=== PATIENT | female | born 1965 | race Caucasian/White ===

== ENCOUNTER 2016-07-10 14:06 | Emergency (ER) | payer MEDICARE, OTHER ==
[~2016-07-10 14:06] MED LIST: ALPR0.5T PO; ASPI81TA2 PO; CALC600T4 PO; CHOL100013 PO; CLIN300C86 PO; CLON0.5T3 PO; CYCL10TA2 PO; DOCU-27 PO; DULO30CA2 PO; FLUC150T PO; KETO10TA PO; LACT1CAP8 PO; LEVO88TA2 PO; LORA10CA PO; LOSA1TAB17 PO; LUBI24CA5 PO; OXYC-323 PO; PREG50CA PO; PREN1TAB54 PO; TRAZ50TA15 PO; VERA120T5 PO; bariatric vitamin PO; mega red
[2016-07-10 14:10] VITALS: BP 120/89
[2016-07-10] MEDS ORDERED: PROCHLORPERAZINE 10 MG/2 ML VIAL. IV ONE (14:30)
--- NOTE | 2016-07-10 14:35 | ED.ADGEN ---
Past History Past Medical History: Heart Disease, Hypertension, Hypothyroid, Migraines Past Surgical History: Gastric Bypass, Other Smoking: Non-smoker Alcohol Use: None Drug Use: None Adult General HPI HPI Patient is a 51-year-old female presents emergency department complaining of her typical migraine headache. She states that her head hurts "all over" she also rates tells me that she has had associated nausea and vomiting. Her home medications of been no relief. She tells me that she saw her neurologist lasted beginning of next month and that she has another appointment at the end of this month. She notes that morphine usually works on her headaches but she acknowledges that we have not given her morphine for her headaches and over 1 year. Review of Systems Review of Systems Constitutional: Denies fever or chills [] Eyes: Denies change in visual acuity, redness, or eye pain [] HENT: Denies nasal congestion or sore throat [] Respiratory: Denies cough or shortness of breath [] Cardiovascular: No additional information not addressed in HPI [] GI: Denies abdominal pain, nausea, vomiting, bloody stools or diarrhea [] : Denies dysuria or hematuria [] Musculoskeletal: Denies back pain or joint pain [] Integument: Denies rash or skin lesions [] Neurologic: Denies headache, focal weakness or sensory changes [] Endocrine: Denies polyuria or polydipsia [] Current Medications Current Medications Current Medications Medications (Trade) Dose Ordered Sig/Judy Start Time Stop Time Status Last Admin Dose Admin Diphenhydramine HCl 25 mg 25 mg 1X ONCE 07/10/16 15:00 07/10/16 15:01 DC 07/10/16 14:47 25 MG Prochlorperazine Edisylate (Compazine) 10 mg 1X ONCE 07/10/16 14:30 07/10/16 14:48 DC 07/10/16 14:47 10 MG Sodium Chloride (Iv Sodium Chloride 0.9% 1,000ml) 1,000 ml @ 1,000 mls/hr 1X ONCE 07/10/16 15:00 07/10/16 15:59 07/10/16 14:47 1,000 MLS/HR Allergies Allergies Allergies Coded Allergies Type Severity Reaction Last Updated Verified Sulfa (Sulfonamide Antibiotics) Allergy Intermediate 05/22/14 Yes codeine Allergy Unknown 2/19/15 Yes ibuprofen Allergy Unknown 03/13/16 Yes promethazine Allergy Unknown 05/22/14 Yes Physical Exam Physical Exam Constitutional: Well developed, well nourished, no acute distress, non-toxic appearance. [] HENT: Normocephalic, atraumatic, bilateral external ears normal, oropharynx moist, no oral exudates, nose normal. [] Eyes: PERRLA, EOMI, conjunctiva normal, no discharge. [] Neck: Normal range of motion, no tenderness, supple, no stridor. [] Cardiovascular:Heart rate regular rhythm, no murmur [] Lungs & Thorax: Bilateral breath sounds clear to auscultation [] Abdomen: Bowel sounds normal, soft, no tenderness, no masses, no pulsatile masses. [] Skin: Warm, dry, no erythema, no rash. [] Back: No tenderness, no CVA tenderness. [] Extremities: No tenderness, no cyanosis, no clubbing, ROM intact, no edema. [] Neurologic: Alert and oriented X 3, normal motor function, normal sensory function, no focal deficits noted. [] Psychologic: Affect normal, judgement normal, mood normal. [] Current Patient Data Vital Signs Vital Signs Date Time Temp Pulse Resp B/P Pulse Ox O2 Delivery O2 Flow Rate FiO2 07/10/16 14:10 98.1 100 18 98 Room Air EKG EKG [] Radiology/Procedures Radiology/Procedures [] Course & Med Decision Making Course & Med Decision Making Pertinent Labs and Imaging studies reviewed. (See chart for details) IVF's, compazine, and benadryl. Given supportive care and follow-up instructions. [] Final Impression Final Impression Migraine Headache[] Problems: Dragon Disclaimer Dragon Disclaimer This electronic medical record was generated, in whole or in part, using a voice recognition dictation system. ADIA HU MD Jul 10, 2016 14:35
[2016-07-10] MEDS ORDERED: IV NORMAL SALINE 1,000ML 1,000 ML IV ONE (15:00)
[2016-07-10] MEDS ORDERED: DIPHENHYDRAMINE 50 MG/ML VIAL IVP ONE (15:00)
== END 2016-07-10 15:23 | disposition home or self-care (01) ==
LOC: ER 14:06
DX: G43.909 Migraine, unspecified, not intractable, without status migrainosus (principal); R11.2 Nausea with vomiting, unspecified; E03.9 Hypothyroidism, unspecified; I11.9 Hypertensive heart disease without heart failure; Z88.2 Allergy status to sulfonamides; Z88.5 Allergy status to narcotic agent; Z88.6 Allergy status to analgesic agent; Z88.8 Allergy status to other drugs, medicaments and biological substances
CPT/HCPCS: 96361; 96374; 96375; 99284; J0780; J1200; J7030

== ENCOUNTER 2017-01-11 14:50 | Emergency (ER) | payer MEDICARE, OTHER ==
[~2017-01-11] VITALS: Ht 157.5 cm; Wt 84.5 kg
[~2017-01-11 14:50] MED LIST changes: +ASPI-630 PO; -ASPI81TA2 PO; +CLIN300C8 PO; -CLIN300C86 PO; +CYCL-331 PO; -CYCL10TA2 PO; +DOCU-109 PO; -DOCU-27 PO; -LOSA1TAB17 PO; +LOSA1TAB22 PO; -LUBI24CA5 PO; +LUBI24CA7 PO
--- NOTE | 2017-01-11 15:10 | PHYS DOC ---
Past History Past Medical History: Heart Disease, Hypertension, Hypothyroid, Migraines Past Surgical History: Gastric Bypass, Other Smoking: Non-smoker Alcohol Use: None Drug Use: None Adult General Chief Complaint Chief Complaint: HEADACHE HPI HPI Patient is a 51 year old female who presents with her typical migraine headache. She states it started earlier today and she took her typical migraine headache medicine at home without any improvement. She states is throbbing pain it's in the frontal posterior aspect of her head she feels nauseated and sound and light makes it worse. She states this is her typical headache. She denies any fevers she feels nauseated but she states she's been drinking fine. She denies any neck pain. She states normally his morphine and Toradol that makes her feel better. She presents to ER with her . Review of Systems Review of Systems Constitutional: Denies fever or chills Eyes: Denies change in visual acuity, redness, or eye pain HENT: Denies nasal congestion or sore throat Respiratory: Denies cough or shortness of breath Cardiovascular: No additional information not addressed in HPI GI: Denies abdominal pain, nausea, vomiting, bloody stools or diarrhea : Denies dysuria or hematuria Musculoskeletal: Denies back pain or joint pain Integument: Denies rash or skin lesions Neurologic: Denies focal weakness or sensory changes, positive for headache Endocrine: Denies polyuria or polydipsia Allergies Allergies Allergies Coded Allergies Type Severity Reaction Last Updated Verified Sulfa (Sulfonamide Antibiotics) Allergy Intermediate 05/22/14 Yes codeine Allergy Unknown 05/22/14 Yes ibuprofen Allergy Unknown 03/13/16 Yes promethazine Allergy Unknown 05/22/14 Yes Physical Exam Physical Exam Constitutional: Well developed, well nourished, no acute distress, non-toxic appearance. HENT: Normocephalic, atraumatic, bilateral external ears normal, oropharynx moist, no oral exudates, nose normal. Eyes: PERRLA, EOMI, conjunctiva normal, no discharge. Neck: Normal range of motion, no tenderness, supple, no stridor. Cardiovascular:Heart rate regular rhythm, no murmur Lungs & Thorax: Bilateral breath sounds clear to auscultation Abdomen: Bowel sounds normal, soft, no tenderness, no masses, no pulsatile masses. Skin: Warm, dry, no erythema, no rash. Back: No tenderness, no CVA tenderness. Extremities: No tenderness, no cyanosis, no clubbing, ROM intact, no edema. Neurologic: Alert and oriented X 3, normal motor function, normal sensory function, no focal deficits noted. Psychologic: Affect normal, judgement normal, mood normal. EKG EKG [] Radiology/Procedures Radiology/Procedures [] Impressions: Migraine headache Course & Med Decision Making Course & Med Decision Making Pertinent Labs and Imaging studies reviewed. (See chart for details) Her symptoms have improved. She's being discharged home. Her is driving her home. Return precautions given. She is agreeable to the plan, and being discharged in stable condition this time. Dragon Disclaimer Dragon Disclaimer This chart was dictated in whole or in part using Voice Recognition software in a busy, high-work load, and often noisy Emergency Department environment. It may contain unintended and wholly unrecognized errors or omissions. Departure Departure: Impression: Primary Impression: Migraine headache Disposition: HOME, SELF-CARE Condition: STABLE Referrals: BRANDY HU DO (PCP) Patient Instructions: Migraine Headache Additional Instructions: You were seen today for your migraine headache. It got better with IV fluids, Benadryl Toradol and Phenergan. Your being discharged home. Please rest and be sure to push fluids for the remainder of the evening. You can continue taking your [id number] headache medicines. Return ER if your headache gets worse , you develop fevers, neck stiffness we have other concerns. Problem Qualifiers Primary Impression: Migraine headache Migraine type: unspecified Status migrainosus presence: without status migrainosus Intractability: not intractable Qualified Codes: G43.909 - Migraine, unspecified, not intractable, without status migrainosus MARYSOL FRANCISCO MD Jan 11, 2017 15:10
[2017-01-11] MEDS ORDERED: PROMETHAZINE 12.5 MG in IV NORMAL SALINE 50ML 50 ML IV PRN (15:30)
[2017-01-11] MEDS ORDERED: KETOROLAC 30 MG/ML VIAL. IV ONE (15:45)
[2017-01-11] MEDS ORDERED: diphenhydrAMINE 50 MG/ML VIAL IVP ONE (15:45)
[2017-01-11] MEDS ORDERED: PROCHLORPERAZINE 10 MG/2 ML VIAL. IV ONE (16:15)
[2017-01-11 17:20] VITALS: BP 132/102
== END 2017-01-11 17:20 | disposition home or self-care (01) ==
LOC: ER 14:50
DX: G43.909 Migraine, unspecified, not intractable, without status migrainosus (principal); I11.9 Hypertensive heart disease without heart failure; E03.9 Hypothyroidism, unspecified; Z98.84 Bariatric surgery status; Z88.2 Allergy status to sulfonamides; Z88.5 Allergy status to narcotic agent; Z88.4 Allergy status to anesthetic agent; Z88.6 Allergy status to analgesic agent
CPT/HCPCS: 96374; 96375; 99284; J0780; J1200; J1885

== ENCOUNTER 2017-08-10 17:59 | Emergency (ER) | payer MEDICARE, OTHER ==
[~2017-08-10] VITALS: Ht 157.5 cm; Wt 88.0 kg
[2017-08-10] MEDS ORDERED: DEXAMETHASONE SOD PHOS 10 MG/ML VIAL IV ONE (19:15)
[2017-08-10] MEDS ORDERED: KETOROLAC 30 MG/ML VIAL. IV ONE (19:15)
[2017-08-10] MEDS ORDERED: METOCLOPRAMIDE HCL 10 MG/2 ML VIAL. IV ONE (19:15)
[2017-08-10] MEDS ORDERED: IV NORMAL SALINE 1,000ML 1,000 ML IV SCH (19:15)
[2017-08-10] MEDS ORDERED: diphenhydrAMINE 50 MG/ML VIAL IVP ONE (19:15)
[2017-08-10 20:08] VITALS: BP 137/89
--- NOTE | 2017-08-10 20:29 | PHYS DOC ---
Past History Past Medical History: Heart Disease, Hypertension, Hypothyroid, Migraines Past Surgical History: Gastric Bypass Smoking: Non-smoker Alcohol Use: None Drug Use: None Adult General Chief Complaint Chief Complaint: HEADACHE HPI HPI 52-year-old female with a history of migraine headaches now presents to the emergency department after gradual onset of headache typical for her. No fevers chills sweats or shaking chills. No stiff neck. No visual or speech changes. No difficulty with strength sensation coordination or gait Review of Systems Review of Systems Constitutional: Denies fever or chills [] Eyes: Denies change in visual acuity, redness, or eye pain [] HENT: Denies nasal congestion or sore throat [] Respiratory: Denies cough or shortness of breath [] Cardiovascular: No additional information not addressed in HPI [] GI: Denies abdominal pain, nausea, vomiting, bloody stools or diarrhea [] : Denies dysuria or hematuria [] Musculoskeletal: Denies back pain or joint pain [] Integument: Denies rash or skin lesions [] Neurologic: Denies headache, focal weakness or sensory changes [] Endocrine: Denies polyuria or polydipsia [] All other systems were reviewed and found to be within normal limits, except as documented in this note. Current Medications Current Medications Current Medications Medications (Trade) Dose Ordered Sig/Judy Start Time Stop Time Status Last Admin Dose Admin Dexamethasone Sodium Phosphate (Decadron) 10 mg 1X ONCE 08/10/17 19:15 08/10/17 19:17 DC 08/10/17 19:24 10 MG Diphenhydramine HCl (Benadryl) 25 mg 1X ONCE 08/10/17 19:15 08/10/17 19:17 DC 08/10/17 19:27 25 MG Ketorolac Tromethamine (Toradol) 30 mg 1X ONCE 08/10/17 19:15 08/10/17 19:18 DC 08/10/17 19:28 30 MG Metoclopramide HCl (Reglan Vial) 10 mg 1X ONCE 08/10/17 19:15 08/10/17 19:18 DC 08/10/17 19:25 10 MG Sodium Chloride 1,000 ml @ 1,000 mls/hr Q1H 08/10/17 19:15 08/10/17 19:23 1,000 MLS/HR Allergies Allergies Allergies Coded Allergies Type Severity Reaction Last Updated Verified Sulfa (Sulfonamide Antibiotics) Allergy Intermediate 05/22/14 Yes codeine Allergy Unknown 05/22/14 Yes ibuprofen Allergy Unknown 03/13/16 Yes promethazine Allergy Unknown 05/22/14 Yes Physical Exam Physical Exam Mild photophobia but well-appearing patient in no acute distress, supple neck no meningismus. Constitutional: Well developed, well nourished, no acute distress, non-toxic appearance. [] HENT: Normocephalic, atraumatic, bilateral external ears normal, oropharynx moist, no oral exudates, nose normal. [] Eyes: PERRLA, EOMI, conjunctiva normal, no discharge. [] Neck: Normal range of motion, no tenderness, supple, no stridor. [] Cardiovascular:Heart rate regular rhythm, no murmur [] Lungs & Thorax: Bilateral breath sounds clear to auscultation [] Abdomen: Bowel sounds normal, soft, no tenderness, no masses, no pulsatile masses. [] Skin: Warm, dry, no erythema, no rash. [] Back: No tenderness, no CVA tenderness. [] Extremities: No tenderness, no cyanosis, no clubbing, ROM intact, no edema. [] Neurologic: Alert and oriented X 3, normal motor function, normal sensory function, no focal deficits noted. [] Psychologic: Affect normal, judgement normal, mood normal. [] Current Patient Data Vital Signs Vital Signs Date Time Temp Pulse Resp B/P (MAP) Pulse Ox O2 Delivery O2 Flow Rate FiO2 08/10/17 18:30 98.1 89 18 100 Room Air EKG EKG [] Radiology/Procedures Radiology/Procedures [] Course & Med Decision Making Course & Med Decision Making Pertinent Labs and Imaging studies reviewed. (See chart for details) Signs and symptoms consistent with migraine headache typical for this patient. Improved after treatment. Patient feels well and wants to go home. No further workup or treatment indicated patient agrees with outpatient follow-up and strict return precautions given [] Dragon Disclaimer Dragon Disclaimer This electronic medical record was generated, in whole or in part, using a voice recognition dictation system. Departure Departure: Impression: Primary Impression: Migraine headache Disposition: HOME, SELF-CARE Condition: IMPROVED Referrals: BRANDY HU DO (PCP) Patient Instructions: Migraine Headache Additional Instructions: It appears that you've been suffering from a migraine headache with which you are familiar. You have improved with hydration and treatment in the emergency department. Take Tylenol every 4 hours as needed for discomfort and consider Benadryl 25-50 mg every 4-6 hours as needed if he tends to be helpful in the setting of your headaches. Follow-up with your doctor tomorrow and return immediately for new severe worsening symptoms. FLAKITA BECKER MD August 10, 2017 20:29
== END 2017-08-10 20:41 | disposition home or self-care (01) ==
LOC: ER 17:59
DX: G43.909 Migraine, unspecified, not intractable, without status migrainosus (principal); I11.9 Hypertensive heart disease without heart failure; E03.9 Hypothyroidism, unspecified; Z98.84 Bariatric surgery status; Z88.2 Allergy status to sulfonamides; Z88.6 Allergy status to analgesic agent; Z88.8 Allergy status to other drugs, medicaments and biological substances
CPT/HCPCS: 96374; 96375; 99284; J1100; J1200; J1885; J2765; J7030

== ENCOUNTER 2017-10-08 13:48 | Emergency (ER) | payer MEDICARE, OTHER ==
[~2017-10-08] VITALS: Ht 61 cm; Wt 86.2 kg
[~2017-10-08 13:48] MED LIST changes: +CLON0.5T11 PO; -CLON0.5T3 PO; +TRAZ-85 PO; -TRAZ50TA15 PO
[2017-10-08 13:59] VITALS: BP 139/100
[2017-10-08] MEDS ORDERED: diphenhydrAMINE 50 MG/ML VIAL IVP ONE (14:15)
[2017-10-08] MEDS ORDERED: IV NORMAL SALINE 1,000ML 1,000 ML IV ONE (14:15)
--- NOTE | 2017-10-08 14:28 | ED.ADGEN ---
Past History Past Medical History: Anxiety, Depression, Hypertension, Hypothyroid, Migraines Past Surgical History: Appendectomy, Cholecystectomy, , Hysterectomy Smoking: Non-smoker Alcohol Use: None Drug Use: None Adult General HPI HPI Patient is a 52 year old female who presents with migraine. Patient has been having migraine symptoms since yesterday. She complains of a frontotemporal headache. She has some nausea but no vomiting. She has photosensitivity. The patient has a prior history of migraines. She does take Zomig at home but this medication did not relieve her symptoms. She also took some Flexeril and Benadryl last night by mouth but these also did not help. This migraine feels exactly similar to her prior migraine syndrome. She has not had a fever or chills. No neck stiffness. No vision changes. No rashes. Review of Systems Review of Systems Constitutional: Denies fever or chills Eyes: Denies change in visual acuity HENT: Denies nasal congestion Respiratory: Denies cough or shortness of breath Cardiovascular: No additional information GI: no abdominal pain : Denies dysuria or hematuria Musculoskeletal: Denies back pain Integument: Denies rash or skin lesions Neurologic: Denies headache Endocrine: Denies polyuria All other systems were reviewed and found to be within normal limits, except as documented in this note. Current Medications Current Medications Current Medications Medications (Trade) Dose Ordered Sig/Judy Start Time Stop Time Status Last Admin Dose Admin Diphenhydramine HCl (Benadryl) 25 mg 1X ONCE 10/08/17 14:15 10/08/17 14:16 DC 10/08/17 14:39 25 MG Ketorolac Tromethamine (Toradol) 30 mg 1X ONCE 10/08/17 14:30 10/08/17 14:31 DC 10/08/17 14:39 30 MG Prochlorperazine Edisylate (Compazine) 10 mg 1X ONCE 10/08/17 14:30 10/08/17 14:31 DC 10/08/17 14:39 10 MG Sodium Chloride 1,000 ml @ 1,000 mls/hr 1X ONCE 10/08/17 14:15 10/08/17 15:14 DC 10/08/17 14:38 1,000 MLS/HR Allergies Allergies Allergies Coded Allergies Type Severity Reaction Last Updated Verified Sulfa (Sulfonamide Antibiotics) Allergy Intermediate 05/22/14 Yes codeine Allergy Unknown 05/22/14 Yes ibuprofen Allergy Unknown 03/13/16 Yes promethazine Allergy Unknown 05/22/14 Yes Physical Exam Physical Exam Constitutional: Well developed, well nourished, no acute distress HENT: Normocephalic, atraumatic, bilateral external ears normal Eyes: PERRLA, EOMI, conjunctiva normal, no discharge Neck: Normal range of motion, no tenderness Cardiovascular:Heart rate regular rhythm, no murmur Lungs & Thorax: Bilateral breath sounds clear to auscultation Abdomen: Bowel sounds normal, soft Skin: Warm, dry, no rash Back: No tenderness, no CVA tenderness Extremities: No edema Neurologic: Alert and oriented X 3, normal motor function, cranial nerves II through XII are intact bilaterally. Psychologic: Affect normal Current Patient Data Vital Signs Vital Signs Date Time Temp Pulse Resp B/P (MAP) Pulse Ox O2 Delivery O2 Flow Rate FiO2 10/08/17 13:59 94 18 100 Room Air EKG EKG [] Radiology/Procedures Radiology/Procedures [] Course & Med Decision Making Course & Med Decision Making Pertinent Labs and Imaging studies reviewed. (See chart for details) Patient is seen and examined. She is complaining of migraine headache that is very typical for her migraine syndrome. No new or acute symptoms. She has had some relief with Toradol the past. This visit, plan is to give IV fluids, Compazine, Benadryl, Toradol. 15:20: Patient currently feeling improved. She received 800 mL of normal saline. She was given IV medications described above. These did entirely relieve her migraine symptoms. She is requesting discharge home. She is accompanied by her who is driving today. Return precautions are discussed and she is advised to come back to the ER if her headache returns and her home medication did not relieve her symptoms or if she develops any new symptoms. Otherwise, she will follow up with her primary care doctor. Final Impression Final Impression Migraine headache Yosvany Disclaimer Yosvany Disclaimer This electronic medical record was generated, in whole or in part, using a voice recognition dictation system. VANESA ESPINOSA DO Oct 08, 2017 14:28
[2017-10-08] MEDS ORDERED: KETOROLAC 30 MG/ML VIAL. IV ONE (14:30)
[2017-10-08] MEDS ORDERED: PROCHLORPERAZINE 10 MG/2 ML VIAL. IV ONE (14:30)
== END 2017-10-08 15:43 | disposition home or self-care (01) ==
LOC: ER 13:48
DX: G43.909 Migraine, unspecified, not intractable, without status migrainosus (principal); F41.9 Anxiety disorder, unspecified; F32.9 Major depressive disorder, single episode, unspecified; I10 Essential (primary) hypertension; E03.9 Hypothyroidism, unspecified; Z88.2 Allergy status to sulfonamides; Z88.5 Allergy status to narcotic agent; Z88.8 Allergy status to other drugs, medicaments and biological substances; Z88.6 Allergy status to analgesic agent
CPT/HCPCS: 96374; 96375; 99284; J0780; J1200; J1885; J7030

== ENCOUNTER 2017-11-12 20:17 | Emergency (ER) | payer MEDICARE, OTHER ==
[~2017-11-12] VITALS: Ht 66 cm; Wt 88.0 kg
[2017-11-12 20:30] VITALS: BP 122/82
--- NOTE | 2017-11-12 20:30 | ED.ADGEN ---
Past History Past Medical History: Anxiety, Depression, Hypertension, Hypothyroid, Migraines Past Surgical History: Appendectomy, Cholecystectomy, , Hysterectomy Smoking: Non-smoker Alcohol Use: None Drug Use: None Adult General Chief Complaint Chief Complaint ".. I got stung by a wasp .. yesterday.. but I still got swelling.. I did take some benadryl..." HPI HPI Patient is a 52 year old female who presents with multiple stings to Lt. arm and hand. Patient has multiple stings on left arm and hand. There is a central sting miriam and surrounding erythema. Distal sensation and capillary refill equal to right arm. Patient reports she is up-to-date with vaccinations. Patient has had stings before from [place] or bees. Patient denies any history of immunosuppression. There is no striations or adenopathy. Must follows at [facility]. No recent travel or specific ill contacts. Review of Systems Review of Systems Constitutional: Denies fever or chills [] Eyes: Denies change in visual acuity, redness, or eye pain [] HENT: Denies nasal congestion or sore throat [] Respiratory: Denies cough or shortness of breath [] Cardiovascular: No additional information not addressed in HPI [] GI: Denies abdominal pain, nausea, vomiting, bloody stools or diarrhea [] : Denies dysuria or hematuria [] Musculoskeletal: Denies back pain or joint pain [] Integument: Denies rash or skin lesions []complains of multiple insect stings Neurologic: Denies headache, focal weakness or sensory changes [] Endocrine: Denies polyuria or polydipsia [] All other systems were reviewed and found to be within normal limits, except as documented in this note. Family History Family History Noncontributory Current Medications Current Medications Current Medications Medications (Trade) Dose Ordered Sig/Judy Start Time Stop Time Status Last Admin Dose Admin Famotidine (Pepcid Vial) 20 mg 1X ONCE 11/12/17 23:45 11/12/17 23:46 UNV Famotidine (Pepcid) 20 mg 1X ONCE 11/12/17 21:00 11/12/17 21:55 DC 11/12/17 21:09 20 MG Lactated Ringer's 1,000 ml @ 1,000 mls/hr Q1H 11/12/17 23:34 11/13/17 00:33 UNV Ondansetron HCl (Zofran) 8 mg 1X ONCE 11/12/17 23:45 11/12/17 23:46 UNV Prednisone (Prednisone) 50 mg 1X ONCE 11/12/17 21:00 11/12/17 21:55 DC 11/12/17 21:09 50 MG Allergies Allergies Allergies Coded Allergies Type Severity Reaction Last Updated Verified Sulfa (Sulfonamide Antibiotics) Allergy Intermediate 05/22/14 Yes codeine Allergy Unknown 05/22/14 Yes ibuprofen Allergy Unknown 03/13/16 Yes promethazine Allergy Unknown 05/22/14 Yes Physical Exam Physical Exam Constitutional: Well developed, well nourished, moderately acute distress, non- toxic appearance. [] HENT: Normocephalic, atraumatic, bilateral external ears normal, oropharynx moist, no oral exudates, nose normal. [] Eyes: PERRLA, EOMI, conjunctiva normal, no discharge. [] Neck: Normal range of motion, no tenderness, supple, no stridor. [] Cardiovascular:Heart rate regular rhythm, no murmur [] Lungs & Thorax: Bilateral breath sounds clear to auscultation [] Abdomen: Bowel sounds normal, soft, no tenderness, no masses, no pulsatile masses. [] Old surgery scars. Skin: Warm, dry, no erythema, no rash. [] Multiple insect stings left arm Back: No tenderness, no CVA tenderness. [] Extremities: No tenderness, no cyanosis, no clubbing, ROM intact, no edema. [] Except findings and left arm- of insect stings Neurologic: Alert and oriented X 3, normal motor function, normal sensory function, no focal deficits noted. [] Psychologic: Affect anxious, judgement normal, mood normal. [] Current Patient Data Vital Signs Vital Signs Date Time Temp Pulse Resp B/P (MAP) Pulse Ox O2 Delivery O2 Flow Rate FiO2 11/12/17 20:30 98.2 103 18 96 Room Air EKG EKG [] Radiology/Procedures Radiology/Procedures [] Course & Med Decision Making Course & Med Decision Making Pertinent Labs and Imaging studies reviewed. (See chart for details). Patient continue Benadryl 25-50 mg 4 times a day. Compresses. Massage areas with Polysporin 4 times a day. Take Keflex if she develops signs of infection. Zantac 150 twice day x 10 days. Take prednisone 50 mg day for 5 days. Follow-up primary care. Return if any concerns. [] Final Impression Final Impression 1. Insect Stings[] Dragon Disclaimer Dragon Disclaimer This electronic medical record was generated, in whole or in part, using a voice recognition dictation system. LUCÍA VELASQUEZ MD Nov 12, 2017 20:30
[2017-11-12] MEDS ORDERED: RANI150T21 PO (20:59)
[2017-11-12] MEDS ORDERED: PRED50TA PO (20:59)
[2017-11-12] MEDS ORDERED: CEPH-264 PO (20:59)
[2017-11-12] MEDS ORDERED: BACI28.34 TP (20:59)
[2017-11-12] MEDS ORDERED: predniSONE 10 MG TABLET PO ONE (21:00)
[2017-11-12] MEDS ORDERED: FAMOTIDINE 20 MG TABLET PO ONE (21:00)
[2017-11-12] MEDS ORDERED: IV RINGERS SOLUTION,LACTATED 1,000 ML IV SCH (23:34)
[2017-11-12] MEDS ORDERED: ONDANSETRON PF 4 MG/2 ML VIAL. IV ONE (23:45)
[2017-11-12] MEDS ORDERED: FAMOTIDINE 20 MG/2 ML VIAL IVP ONE (23:45)
== END 2017-11-12 21:12 | disposition home or self-care (01) ==
LOC: ER 20:17
DX: T63.461A Toxic effect of venom of wasps, accidental (unintentional), initial encounter (principal); F41.9 Anxiety disorder, unspecified; I10 Essential (primary) hypertension; E03.9 Hypothyroidism, unspecified; G43.909 Migraine, unspecified, not intractable, without status migrainosus; Z88.2 Allergy status to sulfonamides; Z88.5 Allergy status to narcotic agent; Z88.6 Allergy status to analgesic agent; Z88.4 Allergy status to anesthetic agent; Y92.89 Other specified places as the place of occurrence of the external cause
CPT/HCPCS: 99283; J7512

== ENCOUNTER 2018-02-07 18:04 | Emergency (ER) | payer MEDICARE, OTHER ==
[~2018-02-07] VITALS: Ht 157.5 cm; Wt 88.5 kg
[~2018-02-07 18:04] MED LIST changes: +BACI28.34 TP; +CEPH-264 PO; +PRED50TA PO; +RANI150T21 PO
--- NOTE | 2018-02-07 18:25 | PHYS DOC ---
Adult General Chief Complaint Chief Complaint headache HPI HPI 52 years old female presented emergency department with chronic headache described as migraine throbbing all over her head similar to the previous headache she hasn't passed a suture with nausea no vomiting no diarrhea and urgency no frequency no hematuria she stated in the past Toradol and Compazine works for her requesting the same protocol Review of Systems Review of Systems Constitutional: Denies fever or chills [] Eyes: Denies change in visual acuity, redness, or eye pain [] HENT: Denies nasal congestion or sore throat [] Respiratory: Denies cough or shortness of breath [] Cardiovascular: No additional information not addressed in HPI [] GI: Denies abdominal pain, nausea, vomiting, bloody stools or diarrhea [] : Denies dysuria or hematuria [] Musculoskeletal: Denies back pain or joint pain [] Integument: Denies rash or skin lesions [] Neurologic: Denies focal weakness or sensory changes [] Endocrine: Denies polyuria or polydipsia [] All other systems were reviewed and found to be within normal limits, except as documented in this note. Allergies Allergies Allergies Coded Allergies Type Severity Reaction Last Updated Verified Sulfa (Sulfonamide Antibiotics) Allergy Intermediate 05/22/14 Yes codeine Allergy Unknown 05/22/14 Yes ibuprofen Allergy Unknown 03/13/16 Yes promethazine Allergy Unknown 05/22/14 Yes Physical Exam Physical Exam Constitutional: Well developed, well nourished, no acute distress, non-toxic appearance. [] HENT: Normocephalic, atraumatic, bilateral external ears normal, oropharynx moist, no oral exudates, nose normal. [] Eyes: PERRLA, EOMI, conjunctiva normal, no discharge. [] Neck: Normal range of motion, no tenderness, supple, no stridor. [] Cardiovascular:Heart rate regular rhythm, no murmur [] Lungs & Thorax: Bilateral breath sounds clear to auscultation [] Abdomen: Bowel sounds normal, soft, no tenderness, no masses, no pulsatile masses. [] Skin: Warm, dry, no erythema, no rash. [] Back: No tenderness, no CVA tenderness. [] Extremities: No tenderness, no cyanosis, no clubbing, ROM intact, no edema. [] Neurologic: Alert and oriented X 3, normal motor function, normal sensory function, no focal deficits noted. [] Psychologic: Affect normal, judgement normal, mood normal. [] EKG EKG [] Radiology/Procedures Radiology/Procedures [] Course & Med Decision Making Course & Med Decision Making Pertinent Labs and Imaging studies reviewed. (See chart for details) [] Final Impression Final Impression [] Problems: (1) Migraine headache Qualifiers: Qualified Codes: G43.009 - Migraine without aura, not intractable, without status migrainosus Dragon Disclaimer Dragon Disclaimer This electronic medical record was generated, in whole or in part, using a voice recognition dictation system. LEENA GRESHAM MD Feb 07, 2018 18:25
[2018-02-07] MEDS ORDERED: diphenhydrAMINE 50 MG/ML VIAL IM ONE (18:30)
[2018-02-07] MEDS ORDERED: KETOROLAC 60 MG/2 ML VIAL. IM ONE (18:30)
[2018-02-07] MEDS ORDERED: PROCHLORPERAZINE 10 MG/2 ML VIAL. IM ONE (18:30)
[2018-02-07 19:18] VITALS: BP 140/90
== END 2018-02-07 19:22 | disposition home or self-care (01) ==
LOC: ER 18:04
DX: G43.009 Migraine without aura, not intractable, without status migrainosus (principal); Z88.2 Allergy status to sulfonamides; Z88.5 Allergy status to narcotic agent; Z88.6 Allergy status to analgesic agent; Z88.8 Allergy status to other drugs, medicaments and biological substances
CPT/HCPCS: 96372; 99284; J0780; J1200; J1885

== ENCOUNTER 2018-04-23 11:51 | Emergency (ER) | payer MEDICARE, OTHER ==
[~2018-04-23] VITALS: Ht 157.5 cm; Wt 86.2 kg
[~2018-04-23 11:51] MED LIST changes: -OXYC-323 PO; +OXYC1TAB15 PO
[2018-04-23 12:14] VITALS: BP 130/90
[2018-04-23] MEDS ORDERED: diphenhydrAMINE 50 MG/ML VIAL IM ONE (13:30)
[2018-04-23] MEDS ORDERED: KETOROLAC 15 MG/ML VIAL. IM ONE (13:30)
[2018-04-23] MEDS ORDERED: PROCHLORPERAZINE 10 MG/2 ML VIAL. IM ONE (13:30)
--- NOTE | 2018-04-23 13:36 | PHYS DOC ---
Past History Past Medical History: Anxiety, Depression, Hypertension, Hypothyroid, Migraines Past Surgical History: Appendectomy, Cholecystectomy, , Hysterectomy Smoking: Non-smoker Alcohol Use: None Drug Use: None Adult General Chief Complaint Chief Complaint: HEADACHE HPI HPI Patient is a 52 year old F who presents with migraine headache over the past 3 days. States that this is similar to previous migraines. She has light and sound sensitivity. She describes pain initially starting on the left side of her head and moving to the entire head. She describes mild nausea without vomiting. She has no other associated symptoms. She has no other exacerbating or relieving factors. Review of Systems Review of Systems Constitutional: Denies fever or chills [] Eyes: Denies change in visual acuity, redness, or eye pain [] HENT: Denies nasal congestion or sore throat [] Respiratory: Denies cough or shortness of breath [] Cardiovascular: No additional information not addressed in HPI [] GI: Denies abdominal pain, vomiting, bloody stools or diarrhea [] : Denies dysuria or hematuria [] Musculoskeletal: Denies back pain or joint pain [] Integument: Denies rash or skin lesions [] Neurologic: Denies focal weakness or sensory changes [] Endocrine: Denies polyuria or polydipsia [] All other systems were reviewed and found to be within normal limits, except as documented in this note. Family History Family History No pertinent medical history was reported Current Medications Current Medications Current Medications Medications (Trade) Dose Ordered Sig/Judy Start Time Stop Time Status Last Admin Dose Admin Diphenhydramine HCl (Benadryl) 50 mg 1X ONCE 04/23/18 13:30 04/23/18 13:31 DC Ketorolac Tromethamine (Toradol 15mg Vial) 15 mg 1X ONCE 04/23/18 13:30 04/23/18 13:31 DC Prochlorperazine Edisylate (Compazine) 10 mg 1X ONCE 04/23/18 13:30 04/23/18 13:31 DC Allergies Allergies Allergies Coded Allergies Type Severity Reaction Last Updated Verified Sulfa (Sulfonamide Antibiotics) Allergy Intermediate 02/07/18 Yes codeine Allergy Unknown 02/07/18 Yes latex Allergy Unknown 02/07/18 Yes ibuprofen Adverse Reaction Unknown GI 04/23/18 Yes promethazine Adverse Reaction Unknown JITTERINESS 04/23/18 Yes Her allergy to promethazine is jitteriness. She is advised not to take ibuprofen due to her stomach. She has tolerated Compazine and Toradol in the past without problems. Physical Exam Physical Exam Constitutional: Well developed, well nourished, no acute distress, non-toxic appearance. [] HENT: Normocephalic, atraumatic, Eyes: PERRLA, EOMI, conjunctiva normal, no discharge. [] Cardiovascular:Heart rate regular rhythm, Lungs & Thorax: Bilateral breath sounds clear to auscultation [] Abdomen: Bowel sounds normal, soft, no tenderness, no masses, no pulsatile masses. [] Skin: Warm, dry, no erythema, no rash. [] Extremities: No tenderness, no cyanosis, no clubbing, ROM intact, no edema. [] Neurologic: Alert and oriented X 3, normal motor function, normal sensory function, no focal deficits noted. [] Psychologic: Affect normal, judgement normal, mood normal. [] Current Patient Data Vital Signs Vital Signs Date Time Temp Pulse Resp B/P (MAP) Pulse Ox O2 Delivery O2 Flow Rate FiO2 04/23/18 12:14 97.5 89 20 97 Room Air EKG EKG [] Radiology/Procedures Radiology/Procedures [] Course & Med Decision Making Course & Med Decision Making Pertinent Labs and Imaging studies reviewed. (See chart for details) Linda symptoms are consistent with her previous migraines. She was given Toradol Benadryl and Compazine. She did note mild improvement in symptoms. She was discharged in stable condition with recommendation to return if she develops new or worsening symptoms. Risks and benefits of imaging were discussed. CT scan of the head was declined. Dragon Disclaimer Dragon Disclaimer This electronic medical record was generated, in whole or in part, using a voice recognition dictation system. Departure Departure: Impression: Primary Impression: Migraine Disposition: 01 HOME, SELF-CARE Condition: STABLE Referrals: BRANDY HU DO (PCP) Patient Instructions: Migraine Headache Additional Instructions: Linda was seen in the ED for a headache. No emergency medical condition was found on history or physical exam. Her headache was treated with mild improvement. She was advised to follow up with her primary care doctor as needed for further management. She was also advised to return to the emergency room as soon as possible if she develops new or worsening symptoms. Problem Qualifiers Primary Impression: Migraine Migraine type: unspecified Status migrainosus presence: without status migrainosus Intractability: not intractable Qualified Codes: G43.909 - Migraine, unspecified, not intractable, without status migrainosus SKIP MCKENNA MD Apr 23, 2018 13:36
== END 2018-04-23 14:10 | disposition home or self-care (01) ==
LOC: ER 11:51
DX: G43.909 Migraine, unspecified, not intractable, without status migrainosus (principal); F41.9 Anxiety disorder, unspecified; I10 Essential (primary) hypertension; E03.9 Hypothyroidism, unspecified; Z88.2 Allergy status to sulfonamides; Z88.5 Allergy status to narcotic agent; Z91.040 Latex allergy status; Z88.6 Allergy status to analgesic agent; Z88.8 Allergy status to other drugs, medicaments and biological substances
CPT/HCPCS: 96372; 99283; J0780; J1200; J1885

== ENCOUNTER 2018-09-21 08:54 | Emergency (ER) | payer MEDICARE, OTHER ==
[~2018-09-21 08:54] MED LIST changes: +RANI-376 PO; -RANI150T21 PO; +TRAZ-120 PO; -TRAZ-85 PO
[2018-09-21 09:06] VITALS: BP 165/99
--- NOTE | 2018-09-21 09:12 | PHYS DOC ---
Past History Past Medical History: Anxiety, Depression, Hypertension, Hypothyroid, Migraines Past Surgical History: Appendectomy, Cholecystectomy, , Hysterectomy Smoking: Non-smoker Alcohol Use: None Drug Use: None Adult General Chief Complaint Chief Complaint: SHORTNESS OF BREATH [facility] Patient is a 53-year-old female who presents with complaint of 2 week history of shortness of breath. Patient has also had some chest discomfort over the last couple of days. She states the pain is primarily in the left side of her back. She states it is worsened with deep breathing and with some movements. She states that when she breathes deep the pain radiates around to her front as well. She denies any cough. She denies any swelling or pain in her lower extremities. She states it feels like it's pulled muscle but states that she has not injured herself. Patient does indicate that shortness of breath is worsened with exertion.[] Review of Systems Review of Systems Constitutional: Denies fever or chills [] Respiratory: Complains of shortness of breath [] Cardiovascular: No additional information not addressed in [facility] [] GI: Denies abdominal pain, nausea, vomiting or diarrhea [] Musculoskeletal: Complains of left-sided back pain [] Integument: Denies rash or skin lesions [] All other systems were reviewed and found to be within normal limits, except as documented in this note. Allergies Allergies Allergies Coded Allergies Type Severity Reaction Last Updated Verified Sulfa (Sulfonamide Antibiotics) Allergy Intermediate 02/07/18 Yes codeine Allergy Unknown 02/07/18 Yes latex Allergy Unknown 02/07/18 Yes ibuprofen Adverse Reaction Unknown GI 04/23/18 Yes promethazine Adverse Reaction Unknown JITTERINESS 04/23/18 Yes Physical Exam Physical Exam Constitutional: Well developed, well nourished, no acute distress, non-toxic appearance. [] HENT: Normocephalic, atraumatic, bilateral external ears normal, oropharynx moist, no oral exudates, nose normal. [] Eyes: PERRLA, EOMI, conjunctiva normal, no discharge. [] Neck: Normal range of motion, no tenderness, supple, no stridor. [] Cardiovascular:Heart rate regular rhythm, no murmur [] Lungs & Thorax: Bilateral breath sounds clear to auscultation [] Abdomen: Bowel sounds normal, soft, no tenderness. [] Skin: Warm, dry, no erythema, no rash. [] Extremities: No tenderness, no cyanosis, no clubbing, ROM intact. [] Neurologic: Alert and oriented X 3, normal motor function, normal sensory function, no focal deficits noted. [] EKG EKG EKG demonstrates normal sinus rhythm with rate of 84.[] Radiology/Procedures Radiology/Procedures [] Impressions: PROCEDURE: PORTABLE CHEST 1V Portable chest, 09/21/2018: HISTORY: Chest discomfort The heart size and pulmonary vascularity are normal. No pulmonary infiltrate is seen. There is no evidence of pleural fluid. IMPRESSION: No acute cardiopulmonary abnormality is detected. Electronically signed by: Brandon Ramos MD (09/21/2018 9:44 AM) [facility] Course & Med Decision Making Course & Med Decision Making Pertinent Labs and Imaging studies reviewed. (See chart for details) [] Dragon Disclaimer Dragon Disclaimer This electronic medical record was generated, in whole or in part, using a voice recognition dictation system. Departure Departure: Impression: Primary Impression: Muscle spasm of back Disposition: 01 HOME, SELF-CARE Condition: STABLE Referrals: BRANDY HU DO (PCP) Patient Instructions: Back Pain, Adult Scripts Diclofenac Sodium (DICLOFENAC SODIUM) 50 Mg Tablet.dr 1 TAB PO BID PRN for PAIN, #20 TAB Prov: RYLAN LIM Jr. DO 09/21/18 Orphenadrine Citrate (ORPHENADRINE CITRATE) 100 Mg Tablet.er 1 TAB PO BID PRN for MUSCLE SPASMS, #14 TAB Prov: RYLAN LIM Jr., DO 09/21/18 RYLAN LIM Jr., DO Sep 21, 2018 09:12
[2018-09-21] MEDS ORDERED: ASPIRIN 81 MG TAB.CHEW PO ONE (09:45)
--- NOTE | 2018-09-21 09:47 | RAD ---
Portable chest, 09/21/2018: HISTORY: Chest discomfort The heart size and pulmonary vascularity are normal. No pulmonary infiltrate is seen. There is no evidence of pleural fluid. IMPRESSION: No acute cardiopulmonary abnormality is detected. Electronically signed by: Brandon Ramos MD (09/21/2018 9:44 AM) [facility]
[2018-09-21 10:03] LABS: BASO % 0 % (0-3); EOS # 0.1 x10^3/uL (0.0-0.7); EOS % 1 % (0-3); HEMATOCRIT 40.2 % (36.0-47.0); HEMOGLOBIN 13.5 g/dL (12.0-15.5); LYMPH # 1.8 x10^3/uL (1.0-4.8); LYMPH % 26 % (24-48); MEAN CORPUSCULAR HEMOGLOBIN 29 pg (25-35); MEAN CORPUSCULAR HGB CONC 34 g/dL (31-37); MEAN CORPUSCULAR VOLUME 87 fL (79-100); MONO # 0.6 x10^3/uL (0.0-1.1); MONO % 9 % (0-9); NEUT # 4.6 x10^3uL (1.8-7.7); NEUT % 64 % (31-73); PLATELET COUNT 311 x10^3/uL (140-400); RED BLOOD COUNT 4.61 x10^6/uL (3.50-5.40); RED CELL DISTRIBUTION WIDTH 13.3 % (11.5-14.5); WHITE BLOOD COUNT 7.2 x10^3/uL (4.0-11.0)
[2018-09-21 10:15] LABS: ALBUMIN 3.1 g/dL (3.4-5.0); ALBUMIN/GLOBULIN RATIO 0.8 (1.0-1.7); CALCIUM 8.9 mg/dL (8.5-10.1); CREATININE 0.6 mg/dL (0.6-1.0); GFR 103.8; MAGNESIUM 1.8 mg/dL (1.8-2.4); POTASSIUM 3.8 mmol/L (3.5-5.1); TOTAL BILIRUBIN 0.5 mg/dL (0.2-1.0); TOTAL PROTEIN 6.8 g/dL (6.4-8.2)
--- NOTE | 2018-09-21 10:26 | EKG ---
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
[2018-09-21] MEDS ORDERED: DICL50TA4 PO (10:53)
[2018-09-21] MEDS ORDERED: ORPH-16 PO (10:53)
== END 2018-09-21 11:00 | disposition home or self-care (01) ==
LOC: ER 08:54
DX: M54.89 Other dorsalgia (principal); R07.89 Other chest pain; F41.9 Anxiety disorder, unspecified; F32.9 Major depressive disorder, single episode, unspecified; I10 Essential (primary) hypertension; E03.9 Hypothyroidism, unspecified; G43.909 Migraine, unspecified, not intractable, without status migrainosus; Z90.49 Acquired absence of other specified parts of digestive tract; Z90.89 Acquired absence of other organs; Z90.710 Acquired absence of both cervix and uterus; Z98.890 Other specified postprocedural states; Z88.2 Allergy status to sulfonamides; Z88.5 Allergy status to narcotic agent; Z91.040 Latex allergy status; Z88.6 Allergy status to analgesic agent; Z88.8 Allergy status to other drugs, medicaments and biological substances
CPT/HCPCS: 36415; 71045; 80053; 83735; 83880; 84484; 85025; 85379; 93005; 99285

== ENCOUNTER 2018-12-06 19:56 | Inpatient (IN) | payer MEDICARE, OTHER ==
[~2018-12-06] VITALS: Ht 157.5 cm; Wt 87.2 kg
[~2018-12-06 19:56] MED LIST changes: +DICL50TA4 PO; +ORPH-16 PO; -mega red; +mega red PO
--- NOTE | 2018-12-06 20:21 | PHYS DOC ---
Past History Past Medical History: Anxiety, Depression Past Surgical History: Cholecystectomy, , Hysterectomy, Other Additional Past Surgical Histo: bariatric surgery Smoking: Non-smoker Alcohol Use: None Drug Use: None Adult General Chief Complaint Chief Complaint: SHORTNESS OF BREATH HPI HPI Patient is a 53-year-old female presents with cough and fever for the past 3 days, getting worse over time. Patient's thermometer was not working but she felt hot to the touch. No nausea or vomiting. Cough productive of yellow sputum. No recent travel. No swelling in legs feet or ankles. Some nasal congestion is present as well. No relief with home therapy.[] Review of Systems Review of Systems Constitutional: A history of present illness [] Eyes: Denies change in visual acuity, redness, or eye pain [] HENT: Denies ear pain or sore throat [] Respiratory: See history of present illness[] Cardiovascular: No chest pain, no respirophasic chest pain, no palpitations[] GI: Denies abdominal pain, nausea, vomiting, bloody stools or diarrhea [] : Denies dysuria or hematuria [] Musculoskeletal: Denies back pain or joint pain [] Integument: Denies rash or skin lesions [] Neurologic: Denies headache, focal weakness or sensory changes [] Endocrine: Denies polyuria or polydipsia [] All other systems were reviewed and found to be within normal limits, except as documented in this note. Allergies Allergies Allergies Coded Allergies Type Severity Reaction Last Updated Verified Sulfa (Sulfonamide Antibiotics) Allergy Intermediate 02/07/18 Yes codeine Allergy Unknown 02/07/18 Yes latex Allergy Unknown 02/07/18 Yes ibuprofen Adverse Reaction Unknown GI 04/23/18 Yes promethazine Adverse Reaction Unknown JITTERINESS 04/23/18 Yes Physical Exam Physical Exam Constitutional: Well developed, well nourished, no acute distress, non-toxic appearance. [] HENT: Normocephalic, atraumatic, bilateral external ears normal, oropharynx moist, no oral exudates, nose normal. [] Eyes: PERRLA, EOMI, conjunctiva normal, no discharge. [] Neck: Normal range of motion, no tenderness, supple, no stridor. [] Cardiovascular:Heart rate regular rhythm, no murmur [] Lungs & Thorax: Bilateral breath sounds clear to auscultation [] Abdomen: Bowel sounds normal, soft, no tenderness, no masses, no pulsatile masses. [] Skin: Warm, dry, no erythema, no rash. [] Back: No tenderness, no CVA tenderness. [] Extremities: No tenderness, no cyanosis, no clubbing, ROM intact, no edema. [] Neurologic: Alert and oriented X 3, normal motor function, normal sensory function, no focal deficits noted. [] Psychologic: Affect normal, judgement normal, mood normal. [] EKG EKG [] Radiology/Procedures Radiology/Procedures Chest x-ray shows a left-sided infiltrate[] Course & Med Decision Making Course & Med Decision Making Pertinent Labs and Imaging studies reviewed. (See chart for details) ED course: Patient arrived, was placed in bed, and tolerated exam well. She was given an additional dose of oral antibiotics, Levaquin, in the hopes that she would be able to turn around and be able to go home since she hit none of the criteria for the curb 65 study. She continued to have shortness of breath. elected after the interventions were performed to admit her to the hospital for further evaluation and treatment. Medical decision making: Patient with a left-sided infiltrate and elevated white count, consistent with pneumonia. There are no criteria from the curb 65 study but she appears to be ill, and maintains persistent tachycardia despite IV fluids.[] Dragon Disclaimer Dragon Disclaimer This electronic medical record was generated, in whole or in part, using a voice recognition dictation system. Departure Departure: Impression: Primary Impression: Pneumonia Disposition: ADMITTED INPATIENT Admitting Physician: Colin Kenney Condition: IMPROVED Referrals: BRANDY HU DO (PCP) Problem Qualifiers Primary Impression: Pneumonia Pneumonia type: due to unspecified organism Laterality: left Lung location: lower lobe of lung Qualified Codes: J18.1 - Lobar pneumonia, unspecified organism JEANNIE CHAVEZ DO Dec 06, 2018 20:21
[2018-12-06] MEDS ORDERED: IPRATRPIUM/ALBUTEROL 0.5/2.5MG 3 ML NEBU. NEB ONE (20:30)
[2018-12-06] MEDS ORDERED: IV NORMAL SALINE 1,000ML 1,000 ML IV ONE (20:30)
[2018-12-06 21:03] LABS: BASO # 0.2 x10^3/uL (0.0-0.2); BASO % 1 % (0-3); EOS % 0 % (0-3); HEMATOCRIT 40.8 % (36.0-47.0); HEMOGLOBIN 13.5 g/dL (12.0-15.5); LYMPH # 1.8 x10^3/uL (1.0-4.8); LYMPH % 9 % (24-48); MEAN CORPUSCULAR HEMOGLOBIN 29 pg (25-35); MEAN CORPUSCULAR HGB CONC 33 g/dL (31-37); MEAN CORPUSCULAR VOLUME 88 fL (79-100); MONO # 1.7 x10^3/uL (0.0-1.1); MONO % 9 % (0-9); NEUT # 16.9 x10^3uL (1.8-7.7); NEUT % 82 % (31-73); PLATELET COUNT 295 x10^3/uL (140-400); RED BLOOD COUNT 4.66 x10^6/uL (3.50-5.40); RED CELL DISTRIBUTION WIDTH 13.8 % (11.5-14.5); WHITE BLOOD COUNT 20.6 x10^3/uL (4.0-11.0)
[2018-12-06 21:19] LABS: ALBUMIN/GLOBULIN RATIO 0.8 (1.0-1.7); CALCIUM 8.9 mg/dL (8.5-10.1); CREATININE 0.8 mg/dL (0.6-1.0); GFR 74.5; POTASSIUM 3.6 mmol/L (3.5-5.1); TOTAL BILIRUBIN 0.6 mg/dL (0.2-1.0); TOTAL PROTEIN 6.8 g/dL (6.4-8.2)
[2018-12-06 21:58] LABS: % LYMPHS 7 % (24-48); % MONOS 7 % (0-10); % SEGS 86 % (35-66)
[2018-12-06 21:59] LABS: PLT ESTIMATE ADEQUATE (ADEQUATE); POLYCHROMASIA SLIGHT
[2018-12-06 22:00] LABS: ANISOCYTOSIS SLIGHT; TOXIC GRANULATION SLIGHT
[2018-12-06] MEDS ORDERED: levoFLOXacin 750 MG TABLET PO ONE (22:00)
[2018-12-06] MEDS ORDERED: IBUPROFEN 400 MG TABLET. PO ONE (22:30)
[2018-12-06] MEDS ORDERED: ACETAMINOPHEN 325 MG TABLET PO PRN (22:45)
[2018-12-06] MEDS ORDERED: ONDANSETRON PF 4 MG/2 ML VIAL. IV PRN (22:45)
[2018-12-06 23:17] LABS: BACTERIA,URINE 0 /HPF (0-FEW); BILIRUBIN,URINE NEG (NEG); CLARITY,URINE CLEAR; COLOR,URINE YELLOW; GLUCOSE,URINE NEG (NEG); NITRITE,URINE NEG (NEG); RBC,URINE 0 /HPF (0-2); UROBILINOGEN,URINE 0.2 mg/dL (0.2 mg/dL); WBC,URINE OCC /HPF (0-4)
[2018-12-06 23:18] LABS: SQUAMOUS EPITHELIAL CELL,UR OCC /LPF
[2018-12-07 00:43] VITALS: BP 123/84
--- NOTE | 2018-12-07 00:43 | RAD ---
Study: CHEST PA LATERAL Indication: Shortness of air, cough and fever. Comparison: None. Findings: Hazy opacity at the lateral aspect of the left lower lung concerning for pneumonia. No associated parapneumonic effusion identified. No pneumothorax. Unremarkable cardiovascular mediastinal silhouette and hilar structures. Impression: Findings consistent with a left lower lung pneumonia. Electronically signed by: KAREN BETANCOURT MD (12/07/2018 12:40 AM) [facility]
[2018-12-07] MEDS: IV NORMAL SALINE 1,000ML 1,000 ML IV SCH ×3 (00:44→17:28)
[2018-12-07] MEDS ORDERED: CYCL-331 PO (01:29)
[2018-12-07] MEDS ORDERED: VERA120T7 PO (01:29)
[2018-12-07] MEDS ORDERED: ALPR0.5T PO (01:29)
[2018-12-07] MEDS ORDERED: VERA240T8 PO (01:29)
[2018-12-07] MEDS ORDERED: OXYC1TAB15 PO (01:29)
[2018-12-07] MEDS ORDERED: PREG300C PO (01:29)
[2018-12-07] MEDS ORDERED: TRAZ-120 PO (01:29)
[2018-12-07] MEDS ORDERED: MULT-55 PO (01:29)
[2018-12-07] MEDS ORDERED: LEVO75TA5 PO (01:29)
[2018-12-07] MEDS ORDERED: PRAM0.255 PO (01:29)
[2018-12-07] MEDS ORDERED: DULO60CA6 PO (01:29)
[2018-12-07] MEDS ORDERED: CALC-104 PO (01:29)
[2018-12-07] MEDS ORDERED: ARIP15TA36 PO (01:29)
[2018-12-07] MEDS ORDERED: ZOLM5TAB13 PO (01:29)
[2018-12-07 05:40] VITALS: BP 121/77
[2018-12-07 06:38] LABS: BASO % 0 % (0-3); EOS % 0 % (0-3); HEMOGLOBIN 12.3 g/dL (12.0-15.5); LYMPH # 1.6 x10^3/uL (1.0-4.8); LYMPH % 11 % (24-48); MEAN CORPUSCULAR HEMOGLOBIN 29 pg (25-35); MEAN CORPUSCULAR HGB CONC 33 g/dL (31-37); MEAN CORPUSCULAR VOLUME 88 fL (79-100); MONO # 0.9 x10^3/uL (0.0-1.1); MONO % 6 % (0-9); NEUT # 12.3 x10^3uL (1.8-7.7); NEUT % 83 % (31-73); PLATELET COUNT 257 x10^3/uL (140-400); RED BLOOD COUNT 4.21 x10^6/uL (3.50-5.40); RED CELL DISTRIBUTION WIDTH 13.7 % (11.5-14.5); WHITE BLOOD COUNT 14.8 x10^3/uL (4.0-11.0)
[2018-12-07 06:39] LABS: CALCIUM 8.3 mg/dL (8.5-10.1); CREATININE 0.7 mg/dL (0.6-1.0); GFR 86.9; POTASSIUM 3.5 mmol/L (3.5-5.1)
[2018-12-07] MEDS ORDERED: ALPRAZolam 0.5 MG TABLET PO PRN (07:45)
[2018-12-07] MEDS ORDERED: CYCLOBENZAPRINE 10 MG TABLET. PO PRN (07:45)
[2018-12-07] MEDS ORDERED: SUMAtriptan SUCCINATE 50 MG TABLET PO PRN (08:00)
[2018-12-07] MEDS: IPRATRPIUM/ALBUTEROL 0.5/2.5MG 3 ML NEBU. NEB SCH ×4 (08:00→20:38)
[2018-12-07] MEDS: LACTOBACILLUS RHAMNOSUS GG 1 CAPSULE. PO SCH ×2 (08:46→21:41)
[2018-12-07] MEDS: MULTIVITAMIN with MINERAL TABLET. PO SCH (08:46)
[2018-12-07] MEDS: AZITHROMYCIN 250 MG TABLET. PO SCH (08:46)
[2018-12-07] MEDS: DOCUSATE SODIUM 100 MG CAPSULE PO SCH (08:46)
[2018-12-07] MEDS: CALCIUM CARB/VIT D3 500/200 TABLET PO SCH ×2 (08:46→21:42)
[2018-12-07] MEDS ORDERED: BARIATRIC VITAMIN PO SCH (09:00)
[2018-12-07] MEDS ORDERED: PRAMIPEXOLE 0.25 MG TABLET. PO PRN (09:00)
[2018-12-07] MEDS ORDERED: MEGA RED PO SCH (09:00)
[2018-12-07] MEDS ORDERED: MAG HYDROX/AL HYDROX/SIMETH 30 ML ORAL.SUSP PO PRN (10:30)
[2018-12-07] MEDS ORDERED: MORPHINE SULFATE 2 MG/ML DISP.SYRIN. IV PRN (10:30)
[2018-12-07 11:49] VITALS: BP 127/78
--- NOTE | 2018-12-07 12:13 | EKG ---
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
--- NOTE | 2018-12-07 15:07 | HP ---
ADMIT DATE: HISTORY OF PRESENT ILLNESS: The patient is a 53-year-old female patient who came to the Emergency Room with a complaint of cough and fever for the last 3 days, getting worse over time. She has not checked her temperature, but she felt hot to touch. She also complained of shortness of breath, cough with productive yellowish sputum. She also complained of some nasal congestion, but denied any other complaints. She was extensively evaluated in the Emergency Room and was found to have leukocytosis with a white cell count 20,600. Her chest x-ray showed that she has left lower lobe infiltrate and the patient was admitted with diagnosis of community-acquired pneumonia and was admitted and was started on IV Rocephin and Zithromax. PAST MEDICAL HISTORY: Significant for anxiety and depression. She has fibromyalgia, Lan's thyroiditis and migraine headache. PAST SURGICAL HISTORY: Significant for Selvin-en-Y gastric bypass surgery, 2 C-sections, total abdominal hysterectomy without salpingo-oophorectomy, had cholecystectomy, left rotator cuff repair, esophagogastroduodenoscopy and colonoscopy. ALLERGIES: She is allergic to SULFA DRUGS, CODEINE, LATEX, PROMETHAZINE and STRAWBERRY. MEDICATIONS: She is currently on following medications: She is on cyclobenzaprine 10 mg every 6 hours as needed, verapamil 120 mg daily, verapamil 240 mg at bedtime, oxycodone/APAP 5/325 one tablet every 6 hours. She is on pregabalin 300 mg at bedtime; duloxetine 60 mg daily at bedtime; trazodone 50 mg at bedtime, aripiprazole 15 mg, she takes 7.5 mg at bedtime. Alprazolam 0.5 mg daily p.r.n. for anxiety. She is on Zomig 2.5 mg p.o. daily as needed for migraine headache, pramipexole for Mirapex 1 mg at bedtime. She is on calcium citrate with vitamin D3, she takes 2 tablets twice a day. She is on Colace 100 mg daily. She is on levothyroxine sodium 75 mcg once a day, multivitamin with mineral 1 tablet once a day. She is also on bariatric vitamins as well as [place] Red 1 capsule once a day. FAMILY HISTORY: She has 2 brothers, one older who has cerebral palsy, one younger has HIV. One sister at the age of 54. Her father at age of 84 and mother at the age of 62 secondary to her cancer. SOCIAL HISTORY: She is . She has 2 sons and 2 daughters. She does not smoke, drink alcohol or use any recreational drugs. 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 REVIEW OF SYSTEMS: The patient denied any blurring of vision, cataract, glaucoma or macular degeneration. Denied any earache, tinnitus or sensorineural deafness. Denied any nosebleeds, stuffy nose or postnasal drip. Denied any sore throat, sore tongue, toothache, hoarseness of voice or difficulty swallowing. Denied any nausea, vomiting, diarrhea or constipation. Denied any hematemesis, melena, or hematochezia. Denied any dysuria, frequency or hematuria. Did complain of left-sided chest pain. Denied any shortness of breath, orthopnea, paroxysmal nocturnal dyspnea. Did complain obviously of cough with yellowish sputum. PHYSICAL EXAMINATION: GENERAL: On arrival to the Emergency Room, the patient was slightly pale. No jaundice, cyanosis or thyromegaly. No jugular venous distention. No limb edema. VITAL SIGNS: Her heart rate was 109, blood pressure was 123/84, temperature was 97.7, respiratory rate was 22 and oxygen saturation was 96% on room air. HEAD, EYES, EARS, NOSE AND THROAT: Showed normocephalic, atraumatic. NECK: Supple. HEART: Showed normal first and second heart sounds. No gallop, rub or murmur. CHEST: Shows central trachea, equal bilateral expansion air entry, vesicular sounds with crepitation mostly in the left side posteriorly. ABDOMEN: Distended, soft, nontender. No guarding or rigidity. No organomegaly. All hernial orifices intact. Bowel sounds normal. NEUROLOGIC: She was awake, alert, responding appropriately. All cranial nerves intact. EXTREMITIES: She moves extremities without difficulty. She ambulates without assistance or assistive devices. LABORATORY DATA: Showed a white cell count 20,600, hemoglobin 13.5, hematocrit 40, MCV 88 and platelet count of 295,000 with normal manual differential. Her chemistry showed a serum sodium 137, potassium 3.6, chloride 97, bicarbonate 29, anion gap of 11, BUN 19, creatinine 0.8, estimated GFR was 74 mL per minute. Her glucose 101, calcium was 8.9. Total bilirubin, AST, ALT, alkaline phosphatase were normal. Total protein was 6.8, albumin 3. Her urinalysis was essentially unremarkable. Her chest x-ray showed that there is hazy opacity at the lateral aspect of left lower lung concerning for pneumonia. No associated parapneumonic effusion identified. No pneumothorax. Unremarkable cardiovascular mediastinal silhouette and hilar structures. ASSESSMENT AND PLAN: In summary, this is a 53-year-old female patient who was admitted with community-acquired pneumonia. She is now on IV ceftriaxone and Zithromax. We will continue all her other medications. We will follow her closely on a daily basis and once she is feeling better, she can be discharged home. LENCHO BUCKNER MD DR: HASMUKH/aide JOB#: [id number] / [id number]
[2018-12-07 16:00] VITALS: BP 153/88
[2018-12-07 19:50] VITALS: BP 156/88
[2018-12-07] MEDS: DULoxetine HCL 60 MG CAPSULE.DR PO SCH (21:41)
[2018-12-07] MEDS: PREGABALIN 75 MG CAPSULE PO SCH (21:41)
[2018-12-07] MEDS: ARIPiprazole 5 MG TABLET PO SCH (21:41)
[2018-12-07] MEDS: LEVOTHYROXINE 75 MCG TABLET PO SCH (21:42)
[2018-12-07] MEDS: traZODone 50 MG TABLET. PO SCH (21:42)
--- NOTE | 2018-12-08 03:17 | PN ---
DATE: 12/07/2018 SUBJECTIVE: The patient is resting slightly propped up in bed, no apparent distress. She is awake, alert. She apparently did complain of some chest pain earlier this morning. However, by the time I saw her, the chest pain has much improved. She continued to have some cough with yellow sputum; however, denied any chills, rigors or fever. PHYSICAL EXAMINATION: GENERAL: When I examined her this morning, she looked well and was clearly in no apparent respiratory distress. She was somewhat pale, but no jaundice, cyanosis or thyromegaly. No jugular venous distention. No limb edema. VITAL SIGNS: Her heart rate was 103, blood pressure was 127/78, temperature was 97.8, respiratory rate 20, and oxygen saturation was 96% on room air. HEAD, EYES, EARS, NOSE AND THROAT: Showed normocephalic, atraumatic. NECK: Supple. HEART: Showed normal first and second heart sounds. No gallop, rub or murmur. CHEST: Shows central trachea, equal bilateral expansion, air entry, vesicular sounds with crepitation mostly in the left side posteriorly. I could not appreciate any rhonchi. ABDOMEN: Distended, soft, nontender. NEUROLOGIC: She is awake, alert, responding appropriately. All cranial nerves are intact. She moves extremities without difficulty. She ambulates without assistance or assistive devices. Her intake was 1100, no output was recorded. LABORATORY DATA: Her lab work this morning showed a white cell count is down to 14,800, hemoglobin 12, hematocrit 37, MCV 88 and platelet count 257,000. Her chemistry showed a serum sodium 137, potassium 3.5, chloride 102, bicarbonate 27, anion gap of 8, BUN 14, creatinine 0.7, estimated GFR was 87 mL per minute. Her glucose 114, calcium was 8.3. ASSESSMENT: In summary, this is a 53-year-old female patient who was admitted with community-acquired pneumonia, mostly has a left lower lobe pneumonia. She has multiple other medical problems including: A. Lan thyroiditis. B. Migraine headaches. C. Depression, anxiety. D. Fibromyalgia. PLAN: To continue with IV antibiotic. Continue with all her other medications. We will repeat all her lab work and decide on further management accordingly. AHMED M. SITA, MD DR: HASMUKH/aide JOB#: [id number] / [id number]
[2018-12-08] MEDS: IPRATRPIUM/ALBUTEROL 0.5/2.5MG 3 ML NEBU. NEB SCH (05:14)
[2018-12-08 05:37] LABS: HEMATOCRIT 36.6 % (36.0-47.0); HEMOGLOBIN 12.1 g/dL (12.0-15.5); RED BLOOD COUNT 4.15 x10^6/uL (3.50-5.40); RED CELL DISTRIBUTION WIDTH 14.1 % (11.5-14.5); WHITE BLOOD COUNT 11.8 x10^3/uL (4.0-11.0)
[2018-12-08 05:45] LABS: CALCIUM 8.6 mg/dL (8.5-10.1); CREATININE 0.7 mg/dL (0.6-1.0); GFR 86.9; POTASSIUM 3.5 mmol/L (3.5-5.1)
[2018-12-08 05:59] VITALS: BP 148/87
[2018-12-08] MEDS: LACTOBACILLUS RHAMNOSUS GG 1 CAPSULE. PO SCH ×2 (08:55→22:04)
[2018-12-08] MEDS: MULTIVITAMIN with MINERAL TABLET. PO SCH (08:55)
[2018-12-08] MEDS: AZITHROMYCIN 250 MG TABLET. PO SCH (08:56)
[2018-12-08] MEDS: DOCUSATE SODIUM 100 MG CAPSULE PO SCH (08:56)
[2018-12-08] MEDS: CALCIUM CARB/VIT D3 500/200 TABLET PO SCH ×2 (09:15→22:02)
[2018-12-08 11:20] VITALS: BP 147/95
[2018-12-08 15:25] VITALS: BP 145/92
[2018-12-08 18:26] VITALS: BP 148/95
[2018-12-08] MEDS: ARIPiprazole 5 MG TABLET PO SCH (22:02)
[2018-12-08] MEDS: LEVOTHYROXINE 75 MCG TABLET PO SCH (22:03)
[2018-12-08] MEDS: PREGABALIN 75 MG CAPSULE PO SCH (22:03)
[2018-12-08] MEDS: DULoxetine HCL 60 MG CAPSULE.DR PO SCH (22:04)
[2018-12-08] MEDS: traZODone 50 MG TABLET. PO SCH (22:04)
[2018-12-08] MEDS: oxyCODONE/APAP 5/325 1 TAB TABLET PO PRN (22:13)
[2018-12-08 23:00] VITALS: BP 119/79
--- NOTE | 2018-12-09 03:09 | PN ---
DATE: SUBJECTIVE: The patient is resting, slightly propped up in bed, awake, alert, continued to complain of cough with yellowish sputum. PHYSICAL EXAMINATION: GENERAL: When I examined her, she looked somewhat pale, but no jaundice, cyanosis or thyromegaly. No jugular venous distention. No limb edema. VITAL SIGNS: Her heart rate was 110, blood pressure 148/87, temperature was 97.6, respiratory rate was 20, and oxygen saturation was 94% on room air. HEAD, EYES, EARS, NOSE AND THROAT: Showed normocephalic, atraumatic. NECK: Supple. HEART: Showed normal first and second heart sounds. No gallop, rub or murmur. CHEST: Showed central trachea, equal bilateral expansion, air entry, vesicular sounds with crepitation mostly in the left side posteriorly, could not appreciate any rhonchi. ABDOMEN: Distended, soft, nontender. NEUROLOGIC: She is awake, alert, responding appropriately. All cranial nerves intact. She moves extremities without difficulty. LABORATORY DATA: Showed a white cell count is down to 11,800, hemoglobin 12, hematocrit 36, MCV 88, and platelet count 268,000. Her chemistry showed a serum sodium 142, potassium 3.5, chloride 105, bicarbonate 26, anion gap 11, BUN 8, creatinine 0.7, estimated GFR was 87 mL per minute. Her glucose 103, calcium was 8.6. Urinalysis showed the urine was yellow, clear with a pH of 6, specific gravity of 1.005. The urine was negative for nitrite, leukocyte esterase, no rbc's, no wbc's, and no bacteria. Her blood cultures still as negative so far, it showed no growth after one day. ASSESSMENT: 1. Community-acquired pneumonia, mostly has a left lower lobe pneumonia, which she is currently on Zithromax and Rocephin. 2. Other medical problems include: A. Lan's thyroiditis. B. Migraine headache. C. Depression and anxiety. D. Fibromyalgia. PLAN: To continue with IV antibiotic. I will check her TSH tomorrow and as she remains stable and her white cell count normalized, we will discharge her home to continue on oral antibiotic. LENCHO BUCKNER MD DR: HASMUKH/aide JOB#: [id number] / [id number]
[2018-12-09 06:59] LABS: HEMATOCRIT 36.7 % (36.0-47.0); HEMOGLOBIN 12.2 g/dL (12.0-15.5); RED BLOOD COUNT 4.16 x10^6/uL (3.50-5.40); RED CELL DISTRIBUTION WIDTH 13.9 % (11.5-14.5); WHITE BLOOD COUNT 9.5 x10^3/uL (4.0-11.0)
[2018-12-09 07:30] VITALS: BP 126/80
[2018-12-09] MEDS: MULTIVITAMIN with MINERAL TABLET. PO SCH (08:54)
[2018-12-09] MEDS: CALCIUM CARB/VIT D3 500/200 TABLET PO SCH (08:54)
[2018-12-09] MEDS: DOCUSATE SODIUM 100 MG CAPSULE PO SCH (08:54)
[2018-12-09] MEDS: LACTOBACILLUS RHAMNOSUS GG 1 CAPSULE. PO SCH (08:54)
[2018-12-09] MEDS: AZITHROMYCIN 250 MG TABLET. PO SCH (08:54)
[2018-12-09] MEDS: oxyCODONE/APAP 5/325 1 TAB TABLET PO PRN (09:02)
[2018-12-09] MEDS ORDERED: FLUC150T PO (10:57)
[2018-12-09] MEDS ORDERED: CEFD300C PO (10:57)
[2018-12-09 11:37] VITALS: BP 141/93
--- NOTE | 2018-12-09 17:09 | DS ---
DATE OF DISCHARGE: 12/09/2018 HOSPITAL COURSE: The patient is a 53-year-old female patient who was admitted with recurrent bouts of cough, fever as well as yellowish sputum. She was complaining of some nasal congestion, but denied any other complaint. She was extensively investigated and was found to have marked leukocytosis. Chest x-ray showed that she had left lower lobe pneumonia. She was admitted with diagnosis of community-acquired pneumonia, started on IV Zithromax and Rocephin and she did actually very well. Her white cell count came down from 20,000 to 9000. She has been afebrile throughout her stay and maintaining her oxygen saturation at 94% on room air. PHYSICAL EXAMINATION: GENERAL: When I examined her today, she looked well and was clearly in no apparent respiratory distress. No pallor, jaundice, cyanosis or thyromegaly. No jugular venous distension. No lower limb edema. VITAL SIGNS: Her heart rate was 82, blood pressure was 126/80, temperature was 98.2, respiratory rate was 16 and oxygen saturation was 94% on room air. HEAD, EYES, EARS, NOSE AND THROAT: Showed normocephalic, atraumatic. NECK: Supple. HEART: Showed normal first and second heart sounds. No gallop, rub or murmur. CHEST: Showed central trachea, equal bilateral expansion, air entry, vesicular sounds, very few crepitations, mostly in the left side posteriorly. No wheezing or rhonchi. ABDOMEN: Distended, soft, nontender. NEUROLOGIC: She is awake, alert, responding appropriately. All cranial nerves intact. EXTREMITIES: She moves extremities without difficulty. She ambulates without assistance or assistive devices. LABORATORY DATA: Showed white cell count 9500, hemoglobin 12, hematocrit 37, MCV 88 and platelet count 288,000. Her chemistry showed serum sodium 142, potassium 3.5, chloride 105, bicarbonate 28, anion gap of 11, BUN 8, creatinine 0.7, estimated GFR was 87 mL per minute. Her glucose 103, calcium was 8.6 and TSH was 2.688. DISCHARGE MEDICATIONS: She was discharged to continue on Zithromax 250 mg once a day for 5 more days, cefdinir 300 mg twice a day and fluconazole 150 mg twice a week. She will continue also on her alprazolam 0.5 mg daily as needed for anxiety, aripiprazole for Abilify 7.5 mg at bedtime, bariatric vitamins 1 tablet once a day, calcium citrate with vitamin D 2 tablets twice a day, Flexeril 10 mg every 6 hours as needed, Colace 100 mg once a day, duloxetine for Cymbalta 150 mg at bedtime, levothyroxine sodium 75 mcg once a day, Omegared capsule 1 capsule once a day, multivitamin 1 tablet once a day, oxycodone/APAP 5/325 one tablet every 6 hours, Mirapex 1 mg at bedtime, pregabalin for Lyrica 300 mg at bedtime, trazodone 50 mg for insomnia, verapamil 120 mg daily and 240 mg at bedtime and Zomig 2.5 mg as needed for migraine headache. FINAL DISCHARGE DIAGNOSES: 1. Community-acquired pneumonia involving left lower lobe, responding very well. She is now afebrile, hemodynamically stable with normal white cell count. She will continue with oral Zithromax and cefdinir. 2. She has multiple other medical problems including: A. Lan thyroiditis; however, she is both biochemically and clinically euthyroid. Her TSH was 2.88. B. Migraine headache, for which she is on Zomig. C. Depression and anxiety, for which she is on Cymbalta. D. She has also fibromyalgia, for which she is on pregabalin (Lyrica) 300 mg at bedtime. LENCHO BUCKNER MD DR: HASMUKH/aide JOB#: [id number] / [id number]
== END 2018-12-09 11:35 | disposition home or self-care (01) | DRG 871 ==
LOC: ER 19:56 → 1 SOUTH 22:29 → UNDOADMIN 23:48 → 1 SOUTH 23:48 → OBSVTOIN 12-07 01:05
PROVIDERS: ADMIT Internal Medicine; ATTEND Internal Medicine
DX: A41.9 Sepsis, unspecified organism (principal); J18.1 Lobar pneumonia, unspecified organism; E06.3 Autoimmune thyroiditis; F32.9 Major depressive disorder, single episode, unspecified; F41.9 Anxiety disorder, unspecified; G43.909 Migraine, unspecified, not intractable, without status migrainosus; M79.7 Fibromyalgia; Z90.710 Acquired absence of both cervix and uterus; Z98.84 Bariatric surgery status; Z90.49 Acquired absence of other specified parts of digestive tract; Z88.5 Allergy status to narcotic agent; Z88.2 Allergy status to sulfonamides; Z88.8 Allergy status to other drugs, medicaments and biological substances; Z91.040 Latex allergy status
CPT/HCPCS: 36415; 71046; 80048; 80053; 81001; 84443; 84484; 85007; 85025; 85027; 87040; 93005; 94640; 96360; G0378; G0379; J0456; J0696; J2270; J7620; 99285-25; J7030

== ENCOUNTER 2019-01-25 03:16 | Emergency (ER) | payer MEDICARE, OTHER ==
[~2019-01-25] VITALS: Ht 157.5 cm; Wt 79.6 kg
[~2019-01-25 03:16] MED LIST changes: +ARIP15TA36 PO; +CALC-104 PO; +CEFD300C PO; +DULO60CA6 PO; +LEVO75TA5 PO; +MULT-55 PO; +PRAM0.255 PO; +PREG300C PO; +VERA120T7 PO; +VERA240T8 PO; +ZOLM5TAB13 PO
--- NOTE | 2019-01-25 03:45 | PHYS DOC ---
Past History Past Medical History: Anxiety, Depression, Migraines, Other Additional Past Medical Histor: retinoschiasis, tension/stress headache, haschimotos disease, hx obesity Past Surgical History: Cholecystectomy, , Hysterectomy, Other Additional Past Surgical Histo: bariatric surgery Smoking: Non-smoker Alcohol Use: None Drug Use: None Adult General Chief Complaint Chief Complaint: MECHANICAL FALL HPI HPI Patient presents to the emergency department for evaluation. She states that she was visiting her son's dog outside to use the bathroom, when the dog took off, and she ran after, tripping on some uneven ground, and striking her head on a piece of wood that was in her yard. She sustained a laceration on the lateral aspect of her right eyebrow. She denies any other painful areas, any headache, did not lose consciousness, denies any neck pain, vision changes, ocular trauma, numbness, or weakness. She has no other complaints. Review of Systems Review of Systems Constitutional: Denies fever or chills [] Eyes: Denies change in visual acuity, redness, or eye pain [] HENT: Denies nasal congestion or sore throat [] Respiratory: Denies cough or shortness of breath [] Cardiovascular: The patient denies any shortness of breath, chest pain, palpitations, or orthopnea [] GI: Denies abdominal pain, nausea, vomiting, bloody stools or diarrhea [] : Denies dysuria or hematuria [] Musculoskeletal: Denies back pain or joint pain [] Integument: Denies rash or skin lesions [] Neurologic: Denies headache, focal weakness or sensory changes [] Allergies Allergies Allergies Coded Allergies Type Severity Reaction Last Updated Verified Sulfa (Sulfonamide Antibiotics) Allergy Intermediate 02/07/18 Yes strawberry Allergy Mild Rash 12/07/18 Yes codeine Allergy Unknown 02/07/18 Yes latex Allergy Unknown 02/07/18 Yes promethazine Adverse Reaction Unknown JITTERINESS 04/23/18 Yes Physical Exam Physical Exam PHYSICAL EXAM: CONSTITUTIONAL: Well developed, well nourished HEAD: normocephalic, atraumatic EENT: PERRL, EOMI. Conjunctivae normal color, sclerae non-icteric; moist mucous membranes. The globes are atraumatic. There is a 3 cm laceration on the lateral aspect of the right eyebrow, without any orbital rim tenderness to palpation. NECK: Supple, non-tender; no meningismus.There is full, painless range of motion of the cervical spine, without any focal bony midline tenderness to palpation. LUNGS: Lungs CTA, breathing even and unlabored. Normal air movement. HEART: Regular rate and rhythm, no murmur CHEST: No deformity; non-tender ABDOMEN: The abdomen is soft, and non-tender, no masses or bruits. EXTREM: Normal ROM; no deformity, no calf tenderness. Normal pulses palpable in all extremities. There is no pedal edema. SKIN: No rash; no diaphoresis NEURO: Alert; normal speech and cognition; CN's grossly intact; strength grossly intact without focal deficit. BACK: No CVA TTP. Current Patient Data Vital Signs Vital Signs Date Time Temp Pulse Resp B/P (MAP) Pulse Ox O2 Delivery O2 Flow Rate FiO2 01/25/19 03:25 97.8 82 20 96 Room Air EKG EKG [] Radiology/Procedures Radiology/Procedures [] Course & Med Decision Making Course & Med Decision Making LACERATION REPAIR PROCEDURE NOTE The 3 cm facial laceration was cleansed with normal saline, and closed with Dermabond with good epithelial approximation. The patient tolerated the procedure well and wound care was discussed with the patient. Dragon Disclaimer Dragon Disclaimer This electronic medical record was generated, in whole or in part, using a voice recognition dictation system. Departure Departure: Impression: Primary Impression: Facial laceration Disposition: 01 HOME, SELF-CARE Condition: STABLE Referrals: BRANDY HU DO (PCP) Patient Instructions: Facial Laceration, Tissue Adhesive Wound Care ADIA MEJIA MD Jan 25, 2019 03:45
[2019-01-25] MEDS ORDERED: DIPHTH,PERTUSS(ACELL),TET TOX 0.5 ML DISP.SYRIN. VAX IM ONE (04:00)
== END 2019-01-25 04:04 | disposition home or self-care (01) ==
LOC: ER 03:16
DX: S01.111A Laceration without foreign body of right eyelid and periocular area, initial encounter (principal); G43.909 Migraine, unspecified, not intractable, without status migrainosus; Z98.84 Bariatric surgery status; Z88.2 Allergy status to sulfonamides; Z91.018 Allergy to other foods; Z88.5 Allergy status to narcotic agent; Z91.040 Latex allergy status; Z88.8 Allergy status to other drugs, medicaments and biological substances; W18.09XA Striking against other object with subsequent fall, initial encounter; Y93.89 Activity, other specified; Y92.89 Other specified places as the place of occurrence of the external cause; Y99.8 Other external cause status
CPT/HCPCS: 12011; 90471; 90715; 99283-25

== ENCOUNTER 2019-11-09 11:59 | Emergency (ER) | payer MEDICARE, OTHER ==
[~2019-11-09] VITALS: Ht 157.5 cm; Wt 92.0 kg
[~2019-11-09 11:59] MED LIST changes: -CALC600T4 PO; +CALC600T6 PO; -CLON0.5T11 PO; +CLON0.5T4 PO; +VERA120T12 PO; -VERA120T5 PO
[2019-11-09 12:00] VITALS: BP 144/88
[2019-11-09] MEDS ORDERED: FAMO-63 PO (12:26)
[2019-11-09] MEDS ORDERED: HYDR28.467 TP (12:26)
[2019-11-09] MEDS ORDERED: PRED50TA PO (12:26)
[2019-11-09] MEDS ORDERED: HYDR25TA PO (12:26)
--- NOTE | 2019-11-09 12:26 | PHYS DOC ---
Past History Past Medical History: Anxiety, Constipation, Depression, Migraines, Other Additional Past Medical Histor: retinoschiasis, tension/stress headache, haschimotos disease, hx obesity Past Surgical History: Cholecystectomy, , Hysterectomy, Other Additional Past Surgical Histo: bariatric surgery Smoking: Non-smoker Alcohol Use: None Drug Use: None General Adult EDM: Chief Complaint: ALLERGIC REACTION HPI: HPI: The history was obtained from the patient. Patient is a 54-year-old female who presents with chief complaint of allergic reaction. She states over the past 24 hours she has noted redness and itchiness to certain areas of her skin. States it first started in her left forehead and periorbital region. She states it is now spread to her anterior chest and right wrist. She states that her home is having ductwork performed. She thinks this could be causing her symptoms. She also notes however that she did start a recent face lotion approximately 3 days ago. She denies any vomiting. She denies any shortness of breath. She denies any chest pain. Denies any vision changes. She states she has been trying to tablets of Benadryl every 12 hours with some relief. She denies any other complaints. No purpura, bulla, petechiae, or mucous membrane involvement reported Review of Systems: Review of Systems: Constitutional: Denies fever or chills Eyes: Denies change in visual acuity HENT: Denies nasal congestion or sore throat Respiratory: Denies cough or shortness of breath Cardiovascular: Denies chest pain or edema GI: Denies abdominal pain, nausea, vomiting, bloody stools or diarrhea : Denies dysuria Musculoskeletal: Denies back pain or joint pain Integument: Positive for rash Neurologic: Denies headache, focal weakness or sensory changes Endocrine: Denies polyuria or polydipsia Lymphatic: Denies swollen glands Psychiatric: Denies depression or anxiety Heart Score: Risk Factors: Risk Factors: DM, Current or recent (<one month) smoker, HTN, HLP, family history of CAD, obesity. Risk Scores: Score 0 - 3: 2.5% MACE over next 6 weeks - Discharge Home Score 4 - 6: 20.3% MACE over next 6 weeks - Admit for Clinical Observation Score 7 - 10: 72.7% MACE over next 6 weeks - Early Invasive Strategies Allergies: Allergies: Allergies Coded Allergies Type Severity Reaction Last Updated Verified Sulfa (Sulfonamide Antibiotics) Allergy Intermediate 02/07/18 Yes strawberry Allergy Mild Rash 12/07/18 Yes codeine Allergy Unknown 02/07/18 Yes latex Allergy Unknown 02/07/18 Yes promethazine Adverse Reaction Unknown JITTERINESS 04/23/18 Yes Physical Exam: PE: Constitutional: Well developed, well nourished, no acute distress, non-toxic appearance. [] HENT: Normocephalic, atraumatic, bilateral external ears normal, oropharynx moist, no oral exudates, nose normal. [] Eyes: Mild left periorbital edema. No bony tenderness around the left perio rbital region. Extraocular eye movements intact. Neck: Normal range of motion, no tenderness, supple, no stridor. [] Cardiovascular:Heart rate regular rhythm, no murmur [] Lungs & Thorax: Bilateral breath sounds clear to auscultation [] Abdomen: soft, no tenderness, no masses, no pulsatile masses. [] Skin: Flat, blanchable, erythematous rash noted to the left periorbital region, anterior chest wall, right wrist. No bulla, petechiae, or purpura appreciated. No vesicles noted. Back: No tenderness, no CVA tenderness. [] Extremities: No tenderness, no cyanosis, no clubbing, ROM intact, no edema. [] Neurologic: Alert and oriented X 3, normal motor function, normal sensory function, no focal deficits noted. [] Psychologic: Affect normal, judgement normal, mood normal. [] Current Patient Data: Vital Signs: Vital Signs Date Time Temp Pulse Resp B/P (MAP) Pulse Ox O2 Delivery O2 Flow Rate FiO2 11/09/19 12:00 98.2 95 18 144/88 (106) 97 Room Air EKG: EKG: [] Radiology/Procedures: Radiology/Procedures: [] Course & Med Decision Making: Course & Med Decision Making Pertinent Labs and Imaging studies reviewed. (See chart for details) Patient is a very pleasant 54-year-old female presents with chief complaint of concern for allergic reaction. Initial vital signs unremarkable. Physical exam noted above and concerning for allergic dermatitis. Patient has been taking Benadryl. She will be discharged home with a short course of prednisone and Pepcid as needed. She also be given prescriptions for topical steroid cream and hydroxyzine as needed. Patient continues to show no signs of anaphylaxis. She was encouraged to follow-up with her primary care physician. Return precautions were discussed and understood. She is stable for discharge home. Yosvany Disclaimer: Yosvany Disclaimer: This electronic medical record was generated, in whole or in part, using a voice recognition dictation system. Departure Departure: Impression: Primary Impression: Allergic rash present on examination Disposition: HOME/RESIDENCE PRIOR TO ADM Condition: STABLE Referrals: BRANDY HU DO (PCP) Patient Instructions: Rash Additional Instructions: Please follow-up with your primary care physician in the next 2 to 3 days. Scripts Hydroxyzine Hcl (HYDROXYZINE HCL) 25 Mg Tablet 1 TAB PO TID PRN for pruritis, #15 TAB Prov: NERY RODRIGUEZ DO 11/09/19 Famotidine (PEPCID) 20 Mg Tablet 1 TAB PO BIDAFTMEAL PRN PRN for RASH, #60 TAB 3 Refills Prov: NERY RODRIGUEZ DO 11/09/19 Hydrocortisone Acetate/Aloe V (HYDROCORTISONE-ALOE 0.5% CREAM) 28.4 Gm Cream..g. 28.4 GM TP TID PRN for rash for 7 Days, EACH apply to rash three times a day as needed Prov: NERY RODRIGUEZ DO 11/09/19 Prednisone (PREDNISONE) 50 Mg Tablet 60 MG PO DAILY for rash for 5 Days, #6 TAB Prov: NERY RODRIGUEZ DO 11/09/19 Justification of Admission: Justification of Admission: Justification of Admission Dx: N/A NERY RODRIGUEZ DO Nov 09, 2019 12:26
== END 2019-11-09 13:09 | disposition home or self-care (01) ==
LOC: ER 11:59
DX: T78.40XA Allergy, unspecified, initial encounter (principal); G43.909 Migraine, unspecified, not intractable, without status migrainosus; Z88.2 Allergy status to sulfonamides; Z88.5 Allergy status to narcotic agent; Z91.040 Latex allergy status; Z88.8 Allergy status to other drugs, medicaments and biological substances; Z91.018 Allergy to other foods; X58.XXXA Exposure to other specified factors, initial encounter
CPT/HCPCS: 99283

== ENCOUNTER 2020-07-14 02:16 | Emergency (ER) | payer MEDICARE, OTHER ==
[~2020-07-14] VITALS: Ht 157.5 cm; Wt 92.3 kg
[~2020-07-14 02:16] MED LIST changes: -CLIN300C8 PO; +CLIN300C9 PO; +FAMO-63 PO; +HYDR25TA PO; +HYDR28.467 TP
--- NOTE | 2020-07-14 02:19 | PHYS DOC ---
Past History Past Medical History: Anxiety, Constipation, Depression, Migraines, Other Additional Past Medical Histor: retinoschiasis, tension/stress headache, haschimotos disease, hx obesity Past Surgical History: Cholecystectomy, , Hysterectomy, Other Additional Past Surgical Histo: bariatric surgery Smoking: Non-smoker Alcohol Use: None Drug Use: None General Adult HPI: HPI: ".. I ve been having a really bad migraine ... it has not gone away with my regular meds..." Patient is a 55 year old female who presents with above hx and complaints of migraine headache. Patient does have photophobia, nausea, and tenderness of the scalp. No temporal artery tenderness. Patient has past history of migraine headaches. Patient states this migraine headache is similar to previous except that has been more persistent has not responded to home medications and her migraine medications. Patient denies any fever chills. Patient denies any recent travel. Patient denies any specific ill contacts. Patient normally follows at [facility]. Does have a past medical history of anxiety, constipation, depression, migraines, retinoschiasis, JO-ANN Conner disease, obesity, and tension headaches. History of morbid obesity but has undergone bariatric surgery and significant weight loss. Review of Systems: Review of Systems: Constitutional: Denies fever or chills Eyes: Denies change in visual acuity HENT: Denies nasal congestion or sore throat Respiratory: Denies cough or shortness of breath Cardiovascular: Denies chest pain or edema GI: Denies abdominal pain, nausea, vomiting, bloody stools or diarrhea : Denies dysuria Musculoskeletal: Denies back pain or joint pain Integument: Denies rash Neurologic: Complains of headache,. Denies focal weakness or sensory changes Endocrine: Denies polyuria or polydipsia Lymphatic: Denies swollen glands Psychiatric: Denies depression or anxiety Family History: Family History: Noncontributory to presentation. History of 2 brothers 1 older has cerebral palsy 1 younger has HIV. Sister at age 54. Father at age 84 and mother age 62 secondary to cancer. Patient has 2 sons and 2 daughters. Current Medications: Current Meds: See nursing for home meds Allergies: Allergies: Allergies Coded Allergies Type Severity Reaction Last Updated Verified Sulfa (Sulfonamide Antibiotics) Allergy Intermediate 02/07/18 Yes strawberry Allergy Mild Rash 12/07/18 Yes codeine Allergy Unknown 02/07/18 Yes latex Allergy Unknown 02/07/18 Yes promethazine Adverse Reaction Unknown JITTERINESS 04/23/18 Yes Physical Exam: PE: Constitutional: Moderate acute distress, non-toxic appearance. [] HENT: Normocephalic, atraumatic, bilateral external ears normal, oropharynx moist, no oral exudates, nose normal. Scalp is tender to palpation Eyes: PERRLA, EOMI, conjunctiva normal, no discharge. No significant field loss appreciated Neck: Normal range of motion, no tenderness, supple, no stridor. [] Cardiovascular:Heart rate regular rhythm, no murmur [] Lungs & Thorax: Bilateral breath sounds equal apex with few scattered wheezes auscultation [] Abdomen: Bowel sounds normal, soft, no tenderness, no masses, no pulsatile masses. Obese. Old surgical scars. Skin: Warm, dry, no erythema, no rash. [] Back: No tenderness, no CVA tenderness. [] Extremities: No tenderness, no cyanosis, no clubbing, ROM intact, no edema. [] Neurologic: Alert and oriented X 3, normal motor function, normal sensory function, no focal deficits noted. DTRs +2 patella and brachial. Chipper Feeder equal. Right-hand dominant. No drift. Amatory without problems Psychologic: Affect anxious judgement normal, mood normal. [] EKG: EKG: [] Radiology/Procedures: Radiology/Procedures: [][place] [address] IMAGING REPORT Signed PATIENT: FARHAN PARK ACCOUNT: [id number] : 1965 LOCATION: ER AGE: 55 SEX: F EXAM STATUS: PRE ER ORD. PHYSICIAN: LUCÍA VELASQUEZ MD REASON: acute headache PROCEDURE: CT HEAD WO CONTRAST CT Head W/O Contrast: History: Reason: acute headache / Spl. Instructions: / History: Comparison: none Axial images were obtained without contrast. The luna and white matter appears normal and symmetrical for the patients age. There is no mass effect, extraaxial fluid collections or hydrocephalus. There is no gross bleed. There is no focal loss of luna-white matter distinction to suggest acute ischemia, i.e. stroke. Impression: No acute findings. PQRS Compliance Statement: One or more of the following individualized dose reduction techniques were utilized for this examination: 1. Automated exposure control 2. Adjustment of the mA and/or kV according to patient size 3. Use of iterative reconstruction technique Electronically signed by: Prerna Orozco III, MD (07/14/2020 3:12 AM) [facility] DICTATED AND SIGNED BY: PRERNA OROZCO III, MD DATE: 07/14/20310 CC: BRANDY HU DO; LUCÍA VELASQUEZ MD ~MTH0 0 Heart Score: C/O Chest Pain: N/A Risk Factors: Risk Factors: DM, Current or recent (<one month) smoker, HTN, HLP, family history of CAD, obesity. Risk Scores: Score 0 - 3: 2.5% MACE over next 6 weeks - Discharge Home Score 4 - 6: 20.3% MACE over next 6 weeks - Admit for Clinical Observation Score 7 - 10: 72.7% MACE over next 6 weeks - Early Invasive Strategies Course & Med Decision Making: Course & Med Decision Making Pertinent Labs and Imaging studies reviewed. (See chart for details) Patient reports significant resolution of her migraine headache. Will be discharged home. Follow-up primary care. Recommend follow-up with neurology. Impression: 1. Migraine Headache [] Dragon Disclaimer: Dragon Disclaimer: This electronic medical record was generated, in whole or in part, using a voice recognition dictation system. Departure Departure: Referrals: BRANDY HU DO (PCP) Dragon Disclaimer This chart was dictated in whole or in part using Voice Recognition software in a busy, high-work load, and often noisy Emergency Department environment. It may contain unintended and wholly unrecognized errors or omissions. Dragon Disclaimer This chart was dictated in whole or in part using Voice Recognition software in a busy, high-work load, and often noisy Emergency Department environment. It may contain unintended and wholly unrecognized errors or omissions. LUCÍA VELASQUEZ MD Jul 14, 2020 02:19
[2020-07-14] MEDS ORDERED: diphenhydrAMINE 50 MG/ML VIAL IVP ONE (03:15)
[2020-07-14] MEDS ORDERED: PROCHLORPERAZINE 10 MG/2 ML VIAL. IV ONE (03:15)
--- NOTE | 2020-07-14 03:15 | RAD ---
CT Head W/O Contrast: History: Reason: acute headache / Spl. Instructions: / History: Comparison: none Axial images were obtained without contrast. The luna and white matter appears normal and symmetrical for the patients age. There is no mass effe ct, extraaxial fluid collections or hydrocephalus. There is no gross bleed. There is no focal loss of luna-white matter distinction to suggest acute ischemia, i.e. stroke. Impression: No acute findings. RS Compliance Statement: One or more of the following individualized dose reduction techniques were utilized for this examinat ion: 1. Automated exposure control 2. Adjustment of the mA and/or kV according to patient size 3. Use of iterative reconstruction technique Electronically signed by: Lyndon Laguerre III, MD (07/14/2020 3:12 AM) [facility]
[2020-07-14] MEDS ORDERED: KETOROLAC 30 MG/ML VIAL. IVP ONE (04:00)
[2020-07-14 05:00] VITALS: BP 134/102
== END 2020-07-14 05:01 | disposition home or self-care (01) ==
LOC: ER 02:16
DX: G43.909 Migraine, unspecified, not intractable, without status migrainosus (principal); F41.9 Anxiety disorder, unspecified; F32.9 Major depressive disorder, single episode, unspecified; Z88.2 Allergy status to sulfonamides; Z91.018 Allergy to other foods; Z88.5 Allergy status to narcotic agent; Z91.040 Latex allergy status; Z88.8 Allergy status to other drugs, medicaments and biological substances
CPT/HCPCS: 70450; 96374; 96375; 99284; J0780; J1200; J1885; J3010

== ENCOUNTER → 2020-12-15 | Outpatient (CLI) | payer MEDICARE, OTHER ==
[~2020-12-15] MED LIST changes: -CALC600T6 PO; +CALC600T60 PO; -VERA120T7 PO; -VERA240T8 PO; +VERA240T80 PO; +[UNRECOGNIZED DRUG - CODE] PO
--- NOTE | 2020-12-15 19:20 | RAD ---
XR FOOT_LEFT 3 VIEWS DATE: 12/15/2020 6:39 PM INDICATION: Left top of foot pain x 4 days, no known trauma COMPARISON: None. FINDINGS: Bones: There is no evidence of acute fracture or dislocation. Plantar calcaneal enthesophyte. Joints: The joint spaces are normal. Miscellaneous: None. IMPRESSION: No evidence of acute fracture. Electronically signed by: Carlitos Devlin MD (12/15/2020 7:17 PM) [facility]
== END ==
LOC: PMG 18:32
PROVIDERS: ATTEND Nurse Practitioner Family
DX: M79.672 Pain in left foot (principal)
CPT/HCPCS: 73630